=== PATIENT | female | born 1990 ===

== ENCOUNTER 2020-10-25 12:18 | Outpatient (REF) | payer OTHER, SELFPAY ==
[2020-10-25 13:16] LABS: MANUAL DIFF FLAG NO
[2020-10-25 13:48] LABS: Basophils Percent Auto 0.5 % (0-2); Eosinophils Absolute Auto 0.1 X10*3/uL (0.0-0.4); Eosinophils Percent Auto 0.7 % (0-4); Hematocrit 43.4 % (37-47); Hemoglobin 14.3 g/dl (12.0-16.0); Imm Gran Abs Auto 0.01 X10*3/uL (0.00-0.03); Imm Gran Pct Auto 0.1 % (0.0-0.4); Mean Corpuscular HGB Conc 32.9 g/dl (31.0-35.0); Mean Corpuscular Hemoglobin 26.9 pg (27.0-33.0); Mean Corpuscular Volume 81.6 fL (80-98); Mean Platelet Volume 10.9 fL (9.4-12.3); Monocytes Absolute Auto 0.6 X10*3/uL (0.1-1.2); Monocytes Percent Auto 7.7 % (2-11); Neutrophils Absolute Auto 4.8 X10*3/uL (2.0-8.3); Platelet Count 316 X10*3/uL (160-400); Red Blood Count 5.32 X10*6/uL (4.20-5.50); Red Cell Distribution Width 12.7 % (11.0-16.0); White Blood Count 7.4 X10*3/uL (4.8-10.8)
[2020-10-25 14:41] LABS: Erythrocyte Sedimentation Rate 2 MM/HR (0-20)
[2020-10-25 14:49] LABS: Alanine Aminotransferase 8 U/L (0-31); Albumin Level 4.9 g/dL (3.5-5.0); Alkaline Phosphatase 54 U/L (39-117); Anion Gap 14 (12-20); Aspartate Amino Transferase 14 U/L (5-31); Bilirubin Total 1.9 mg/dL (0.0-1.0); Blood Urea Nitrogen 13 mg/dL (9-16); Calcium 9.7 mg/dL (8.4-10.2); Carbon Dioxide 27 mmol/L (22-29); Chloride 100 mmol/L (96-108); Cholesterol 197 mg/dL; Estimated Glomerular Filt Rate > 60; Glucose Fasting 116 mg/dL (60-99); HDL Cholesterol 47 mg/dL; LDL Cholesterol Calculated 136 mg/dl; Potassium 3.6 mmol/L (3.3-5.1); Rheumatoid Factor < 15.0 IU/mL (<15.0); Sodium 137 mmol/L (135-145); Total Protein 7.8 g/dL (6.5-8.0); Triglycerides 72 mg/dL
[2020-10-25 14:51] LABS: TSH reflex Free T4 0.83 uIU/mL (0.32-4.0)
[2020-10-29 14:38] LABS: Cyclic Citrullinated Peptide <16 UNITS
== END 2020-10-25 12:19 | disposition home or self-care (01) ==
LOC: HO.LAB 12:18
PROVIDERS: PCP Internal Medicine; Visit Provider Internal Medicine
DX: M25.50 Pain in unspecified joint (principal); R63.4 Abnormal weight loss; Z82.49 Family history of ischemic heart disease and other diseases of the circulatory system
CPT/HCPCS: 36415; 80053; 80061; 84443; 85025; 85652; 86200; 86431

== ENCOUNTER 2020-10-31 12:20 | Outpatient (REF) | payer OTHER, SELFPAY ==
--- NOTE | ~2020-10-31 | XR_ITS ---
EXAMINATION: XR LUMBOSACRAL SPINE CLINICAL INFORMATION: Low back pain. COMPARISON: None TECHNIQUE: Three views of the lumbosacral spine. FINDINGS: There is normal lumbar lordosis. The vertebral heights, alignment and disc heights are normal. There is no visible acute fracture, dislocation or subluxation. No lytic or sclerotic process seen. The soft tissues are normal. The SI joints are symmetrical and normal. XR/XR lumbar spine 2-3V IMPRESSION: Unremarkable lumbar spine exam.
[2020-11-01 04:52] LABS: Lyme Abs Screen <0.90 index
[2020-11-01 12:27] LABS: Antibody to SS-A Antigen <1.0 NEG AI (<1.0 NEG); Antibody to SS-B Antigen <1.0 NEG AI (<1.0 NEG)
[2020-11-01 15:36] LABS: Anti Nuclear Antibody Screen NEGATIVE (NEGATIVE)
[2020-11-05 15:37] LABS: Vitamin D 25-OH, D2 <4 ng/mL; Vitamin D 25-OH, D3 9 ng/mL; Vitamin D 25-OH, Total 9 ng/mL (30-100)
== END 2020-10-31 12:21 | disposition home or self-care (01) ==
LOC: HO.LAB 12:20
PROVIDERS: PCP Internal Medicine; Referring Provider Internal Medicine; Visit Provider Student in an Organized Health Care Education/Training Program
DX: M25.50 Pain in unspecified joint (principal)
CPT/HCPCS: 36415; 72100; 82306; 86038; 86039; 86235; 86618; 99202

== ENCOUNTER → 2020-11-27 10:25 | Outpatient (BNVA) | payer OTHER, SELFPAY | PROVIDERS: PCP Internal Medicine; Visit Provider Student in an Organized Health Care Education/Training Program | DX: M25.50 Pain in unspecified joint (principal); E55.9 Vitamin D deficiency, unspecified; Z68.1 Body mass index [BMI] 19.9 or less, adult; Z71.3 Dietary counseling and surveillance | CPT/HCPCS: 99212 ==

== ENCOUNTER 2020-11-29 14:49 | Outpatient (REF) | payer OTHER, SELFPAY ==
[2020-11-30 09:02] LABS: BV Int Neg Control Negative (Negative); BV Int Pos Control Positive (Positive)
== END 2020-11-29 14:50 | disposition home or self-care (01) ==
LOC: HO.LAB 14:49
PROVIDERS: PCP Internal Medicine; Visit Provider Advanced Practice Midwife
DX: Z01.419 Encounter for gynecological examination (general) (routine) without abnormal findings (principal); Z11.3 Encounter for screening for infections with a predominantly sexual mode of transmission; Z20.2 Contact with and (suspected) exposure to infections with a predominantly sexual mode of transmission; N92.0 Excessive and frequent menstruation with regular cycle; G43.109 Migraine with aura, not intractable, without status migrainosus; Z80.3 Family history of malignant neoplasm of breast
CPT/HCPCS: 87480; 87491; 87510; 87591; 87660

== ENCOUNTER 2021-05-16 14:46 | Outpatient (REF) | payer OTHER, SELFPAY ==
[2021-05-17 04:24] LABS: CT PCR NOT DETECTED (Not Detect.); NG PCR NOT DETECTED (Not Detect.)
[2021-05-17 08:39] LABS: BV Int Neg Control Negative (Negative); BV Int Pos Control Positive (Positive)
== END 2021-05-16 14:47 | disposition home or self-care (01) ==
LOC: HO.LAB 14:46
PROVIDERS: Advanced Practice Midwife; Visit Provider Advanced Practice Midwife
DX: N90.89 Other specified noninflammatory disorders of vulva and perineum (principal)
CPT/HCPCS: 81003; 81025; 87480; 87491; 87510; 87591; 87660

== ENCOUNTER 2021-08-21 19:24 | Emergency (ER) | payer OTHER, SELFPAY ==
--- NOTE | ~2021-08-21 | CT_ITS ---
EXAMINATION: CT ABDOMEN AND PELVIS WITHOUT CONTRAST CLINICAL INFORMATION: Left flank pain. COMPARISON: None TECHNIQUE: Multidetector volumetric imaging was performed from the superior aspect of the liver through the pubic symphysis. Sagittal and coronal reformatted images were obtained on the technologist's workstation. This CT examination was performed using dose optimization techniques as appropriate, variously including the following: *Automated exposure control *Adjustment of mA and/or kV according to patient size (this includes techniques or standardized protocols for targeted exams where dose is matched to indication/reason for exam; i.e. extremities or head) *Use of iterative reconstruction technique DLP: 314 mGy-cm FINDINGS: LUNG BASES: The visualized lung bases are unremarkable. LIVER, GALLBLADDER, AND BILIARY TREE: The liver is normal in size, shape, and attenuation. No focal hepatic lesion or biliary ductal dilatation is present. The gallbladder is unremarkable with no evidence of radiopaque gallstones, gallbladder wall thickening, or obvious pericholecystic inflammatory changes. PANCREAS: Unremarkable. SPLEEN: Unremarkable. ADRENAL GLANDS: Unremarkable. KIDNEYS AND URETERS: The kidneys are normal in size, shape, and attenuation. No hydronephrosis, hydroureter, or calculi seen. No perinephric stranding. BLADDER: Unremarkable. GASTROINTESTINAL TRACT: The small and large bowel are unremarkable. The appendix is nonvisualized. No edema or inflammation of the mesentery. ABDOMINAL WALL: No significant hernia is appreciated. LYMPH NODES: Normal. VASCULAR: Unremarkable. PELVIC VISCERA: Unremarkable. OSSEOUS STRUCTURES: Unremarkable. CT/CT abdomen pelvis wo con IMPRESSION: Normal CT scan of the abdomen pelvis. Normal kidneys , ureter and bladder. Fleischner guidelines were followed.
[2021-08-21 20:27] VITALS: BP 124/69; PULSE 96; RESP 16; TEMP 36.8; O2SAT 100; BMI 20.5
[2021-08-21 21:07] LABS: MANUAL DIFF FLAG NO
[2021-08-21 21:08] LABS: Appearance Urine HAZY; Basophils Absolute Auto 0.1 X10*3/uL (0.0-0.2); Basophils Percent Auto 0.6 % (0-2); Color Urine YELLOW; Eosinophils Absolute Auto 0.2 X10*3/uL (0.0-0.4); Eosinophils Percent Auto 1.9 % (0-4); Glucose Urine UA NEG (NEG); Hematocrit 39.2 % (37.0-47.0); Hemoglobin 12.9 g/dl (12.0-16.0); Imm Gran Abs Auto 0.01 X10*3/uL (0.00-0.03); Imm Gran Pct Auto 0.1 % (0.0-0.4); Leukocyte Esterase Urine 1+ (NEG); Lymphocytes Percent Auto 23.7 % (20-40); Mean Corpuscular HGB Conc 32.9 g/dl (31.0-35.0); Mean Corpuscular Hemoglobin 27.4 pg (27.0-33.0); Mean Corpuscular Volume 83.4 fL (80.0-98.0); Monocytes Absolute Auto 0.7 X10*3/uL (0.1-1.2); Monocytes Percent Auto 8.4 % (2-11); Neutrophils Absolute Auto 5.4 x10*3/uL (2.0-8.3); Neutrophils Percent Auto 65.3 % (45-73); Nitrite Urine NEG (NEG); PH 6.5 (5.0-8.0); Platelet Count 311 X10*3/uL (160-400); UACC Culture Trigger YES; Urine Blood 1+ (NEG); Urine Ketones NEG (NEG); Urine Protein NEG (NEG-TRACE); White Blood Count 8.2 X10*3/uL (4.8-10.8)
[2021-08-21 21:13] LABS: UPreg QC Valid YES; Urine Pregnancy NEGATIVE (NEGATIVE)
[2021-08-21 21:18] LABS: Mucus Urine 2+ /LPF; Renal Epithelial Cells Urine 1+ /LPF; Squamous Epithelial Cell Urine TRACE /LPF
[2021-08-21 21:19] LABS: Bacteria Urine TRACE /LPF; UACC CULT YES
[2021-08-21 21:37] LABS: Alanine Aminotransferase 9 U/L (0-31); Albumin Level 4.4 g/dL (3.5-5.0); Alkaline Phosphatase 69 U/L (39-117); Anion Gap 10 (12-20); Aspartate Amino Transferase 14 U/L (5-31); Bilirubin Total 0.6 mg/dL (0.0-1.0); Blood Urea Nitrogen 11 mg/dL (9-16); Calcium 9.9 mg/dL (8.4-10.2); Carbon Dioxide 29 mmol/L (22-29); Chloride 105 mmol/L (96-108); Creatinine Clr Calc Pharmacy 85.8; Estimated Glomerular Filt Rate > 60; Glucose Random 102 mg/dL (60-115); Potassium 3.6 mmol/L (3.3-5.1); Sodium 140 mmol/L (135-145); Total Protein 7.1 g/dL (6.5-8.0)
--- NOTE | 2021-08-21 21:55 | ED.ABDPAIN ---
HPI - Abdominal Pain General Chief Complaint: Abdominal Pain Stated Complaint: ?uti Time Seen by Provider: 08/21/21 21:54 Source: patient Mode of arrival: ambulatory Limitations: no limitations History of Present Illness MD elicited complaint: abdominal pain Pertinent past history: past UTI Onset (ago): day(s) (5) Location: L flank Severity: moderate Quality: aching Radiation: none Migration to: no migration Exacerbating factors: nothing Relieving factors: nothing Context: history of similar episodes Associated symptoms: chills and other (headaches, dysuria) Treatments prior to arrival: other (took motrin earlier today no relief) Related Data Home Medications Medication Instructions Recorded Confirmed ibuprofen 100 mg/5 mL oral 200 mg PO Q6H 10/31/20 07/16/21 suspension (Children's Ibuprofen) lidocaine 4 % topical patch 1 patch TOPICAL DAILY PRN 10/31/20 07/16/21 (Aspercreme (lidocaine)) menthol 2.5 % topical gel (Icy Hot 1 appl TOPICAL BID-QID PRN 10/31/20 07/16/21 Pain Relieving) Previous Rx's Medication Instructions Recorded cholecalciferol (vitamin D3) 1,250 1,250 mcg PO QWEEK #8 cap 11/06/20 mcg (50,000 unit) capsule cholecalciferol (vitamin D3) 50 50 mcg PO DAILY 90 Days #90 cap 07/16/21 mcg (2,000 unit) capsule cefuroxime axetil 500 mg tablet 500 mg PO BID 10 Days #20 tab 08/21/21 ondansetron 4 mg disintegrating 4 mg PO Q8H PRN #20 tab 08/21/21 tablet Allergies Allergy/AdvReac Type Severity Reaction Status Date / Time No Known Allergies [NKA] Allergy Verified 07/16/21 10:24 Review of Systems Review of Systems Constitutional : No Fever, No Chills ENT/Mouth : No sore throat Eyes: No Eye Pain, No Swelling, No Redness Cardiovascular : No Chest Pain, No SOB Respiratory : No Cough, No Sputum, No Wheezing Gastrointestinal : positive Nausea, no Vomiting, No Diarrhea, positive abdominal pain Genitourinary : positive Dysuria, positive urinary frequency, no Hematuria, positive Flank Pain, no hesitancy Musculoskeletal : No joint pain, No Myalgias Skin : No Skin Lesions, No rash Neuro : No Weakness, No Numbness, pos Headache Psych : No Anxiety/Panic, No Depression Heme/Lymph: No Bruising, No Lymphadenopathy Endocrine : No Polyuria, No Polydipsia All other systems reviewed and are negative Physical Exam Vital Signs: Vital Signs: Last Vital Signs Temp 98.3 F 08/21/21 20:27 Pulse 96 08/21/21 20:27 Resp 16 08/21/21 20:27 BP 124/69 08/21/21 20:27 Pulse Ox 100 08/21/21 20:27 BMI result Body Mass Index 20.5 Appearance: Alert. Oriented X3. No acute distress. Eyes: Pupils equal, round and reactive to light. ENT: Pharynx normal. Neck: Normal inspection. Neck supple. CVS: Normal heart rate and rhythm. Pulses normal. Respiratory: No respiratory distress. Breath sounds normal. Abdomen: Soft and nontender. Back: mild L CVA ttp Skin: Skin warm and dry. Normal skin color. Normal skin turgor. Extremities: No lower extremity edema. No calf ttp Neuro: Oriented X 3. No motor deficit. No sensory deficit. Course Course Course Narrative: negative CT scan no WBC count not toxic, no vomiting can be managed at home with PO antibiotics MDM - Abdominal Pain MDM Narrative Medical decision making narrative: 30 yo female with L flank pain hx of pyelo in the past reports symptoms x 5 days - she denies fevers, vomiting - at this time labs, UA, supportive medications, empiric ceftriaxone and CT scan for renal colic - she is not toxic likely can be managed at home with PO medications. Dispo per results and findings. Lab Data Result diagrams: 08/21/21 21:00 08/21/21 21:00 Labs: Lab Results 08/21/21 08/21/21 08/21/21 Range/Units 21:00 21:00 21:00 WBC 8.2 (4.8-10.8) X10*3/uL RBC 4.70 (4.20-5.50) X10*6/uL Hgb 12.9 (12.0-16.0) g/dl Hct 39.2 (37.0-47.0) % MCV 83.4 (80.0-98.0) fL MCH 27.4 (27.0-33.0) pg MCHC 32.9 (31.0-35.0) g/dl RDW 13.0 (11.0-16.0) % Plt Count 311 (160-400) X10*3/uL MPV 10.0 (9.4-12.3) fL Immature Gran % (Auto) 0.1 (0.0-0.4) % Neut % (Auto) 65.3 (45-73) % Lymph % (Auto) 23.7 (20-40) % Kendall % (Auto) 8.4 (2-11) % Eos % (Auto) 1.9 (0-4) % Baso % (Auto) 0.6 (0-2) % Lymph # (Auto) 2.0 (1.2-4.9) X10*3/uL Kendall # (Auto) 0.7 (0.1-1.2) X10*3/uL Eos # (Auto) 0.2 (0.0-0.4) X10*3/uL Baso # (Auto) 0.1 (0.0-0.2) X10*3/uL Abs Immat Gran (auto) 0.01 (0.00-0.03) X10*3/uL Absolute Neuts (auto) 5.4 (2.0-8.3) x10*3/uL Absolute Nucleated RBC 0.000 (0.0-0.012) X10*3/uL Nucleated RBC % (auto) 0.0 (0.0-0.2) /100WBC Sodium 140 (135-145) mmol/L Potassium 3.6 (3.3-5.1) mmol/L Chloride 105 (96-108) mmol/L Carbon Dioxide 29 (22-29) mmol/L Anion Gap 10 L (12-20) BUN 11 (9-16) mg/dL Creatinine 0.71 (0.5-1.4) mg/dL Estim Creat Clear Calc 85.8 Estimated GFR > 60 Random Glucose 102 (60-115) mg/dL Calcium 9.9 (8.4-10.2) mg/dL Total Bilirubin 0.6 (0.0-1.0) mg/dL AST 14 (5-31) U/L ALT 9 (0-31) U/L Alkaline Phosphatase 69 D (39-117) U/L Total Protein 7.1 (6.5-8.0) g/dL Albumin 4.4 (3.5-5.0) g/dL Urine Color YELLOW Urine Appearance HAZY Urine pH 6.5 (5.0-8.0) Ur Specific Fulton 1.020 (1.005-1.025) Urine Protein NEG (NEG-TRACE) MG/DL Urine Glucose (UA) NEG (NEG) MG/DL Urine Ketones NEG (NEG) MG/DL Urine Blood 1+ H (NEG) Urine Nitrite NEG (NEG) Ur Leukocyte Esterase 1+ H (NEG) Urine RBC 1-4 (0) /HPF Urine WBC 15-29 H (0-4) /HPF Ur Squamous Epith Cells TRACE /LPF Ur Renal Epithelial Cell 1+ /LPF Urine Bacteria TRACE /LPF Urine Mucus 2+ /LPF Urine Test (NEGATIVE) 08/21/21 Range/Units 21:00 WBC (4.8-10.8) X10*3/uL RBC (4.20-5.50) X10*6/uL Hgb (12.0-16.0) g/dl Hct (37.0-47.0) % MCV (80.0-98.0) fL MCH (27.0-33.0) pg MCHC (31.0-35.0) g/dl RDW (11.0-16.0) % Plt Count (160-400) X10*3/uL MPV (9.4-12.3) fL Immature Gran % (Auto) (0.0-0.4) % Neut % (Auto) (45-73) % Lymph % (Auto) (20-40) % Kendall % (Auto) (2-11) % Eos % (Auto) (0-4) % Baso % (Auto) (0-2) % Lymph # (Auto) (1.2-4.9) X10*3/uL Kendall # (Auto) (0.1-1.2) X10*3/uL Eos # (Auto) (0.0-0.4) X10*3/uL Baso # (Auto) (0.0-0.2) X10*3/uL Abs Immat Gran (auto) (0.00-0.03) X10*3/uL Absolute Neuts (auto) (2.0-8.3) x10*3/uL Absolute Nucleated RBC (0.0-0.012) X10*3/uL Nucleated RBC % (auto) (0.0-0.2) /100WBC Sodium (135-145) mmol/L Potassium (3.3-5.1) mmol/L Chloride (96-108) mmol/L Carbon Dioxide (22-29) mmol/L Anion Gap (12-20) BUN (9-16) mg/dL Creatinine (0.5-1.4) mg/dL Estim Creat Clear Calc Estimated GFR Random Glucose (60-115) mg/dL Calcium (8.4-10.2) mg/dL Total Bilirubin (0.0-1.0) mg/dL AST (5-31) U/L ALT (0-31) U/L Alkaline Phosphatase (39-117) U/L Total Protein (6.5-8.0) g/dL Albumin (3.5-5.0) g/dL Urine Color Urine Appearance Urine pH (5.0-8.0) Ur Specific Fulton (1.005-1.025) Urine Protein (NEG-TRACE) MG/DL Urine Glucose (UA) (NEG) MG/DL Urine Ketones (NEG) MG/DL Urine Blood (NEG) Urine Nitrite (NEG) Ur Leukocyte Esterase (NEG) Urine RBC (0) /HPF Urine WBC (0-4) /HPF Ur Squamous Epith Cells /LPF Ur Renal Epithelial Cell /LPF Urine Bacteria /LPF Urine Mucus /LPF Urine Test NEGATIVE (NEGATIVE) Discharge Plan Discharge Clinical Impression: Pyelonephritis Patient Disposition: Home, Self-Care Instructions: Kidney Infection (ED) Additional Instructions: return to ED for any worsening symptoms or concerns + UA labs otherwise normal, normal CT scan of abdomen Prescriptions: New ondansetron 4 mg tablet,disintegrating 4 mg PO Q8H PRN (Reason: nausea and vomiting) Qty: 20 RF: 0 cefuroxime axetil 500 mg tablet 500 mg PO BID 10 Days Qty: 20 RF: 0 No Action cholecalciferol (vitamin D3) 1,250 mcg (50,000 unit) capsule 1,250 mcg PO QWEEK Qty: 8 RF: 0 cholecalciferol (vitamin D3) 50 mcg (2,000 unit) capsule 50 mcg PO DAILY 90 Days Qty: 90 RF: 3 ibuprofen [Children's Ibuprofen] 100 mg/5 mL suspension 200 mg PO Q6H RF: 0 Icy Hot Pain Relieving 2.5 % gel 1 appl topical BID-QID PRNRF: 0 lidocaine [Aspercreme (lidocaine HCl)] 4 % adhesive patch,medicated 1 patch topical DAILY PRNRF: 0 Stand Alone Forms: Work/School Release [facility] Past Medical History Attestation statement: The following information was validated with the patient. Medical History FH: breast cancer in first degree relative Migraine with aura No pertinent past medical history UTI (urinary tract infection) Surgical History History of appendectomy Family History Family History Mother CVD (cardiovascular disease) Osteoporosis Father Lung cancer Sister Breast cancer, Onset Age: 21 Mental health disorder Social History Social History Housing: House Alcohol intake: current Alcohol intake frequency: does not drink Alcohol type: wine Patient Tobacco Use Status: Never used Tobacco e-Cigarette/Vaping Use: Never Used Second Hand Smoke Exposure: No Advance Directives: No Advance Directives Information Provided: Yes Patient : No service: No Current occupational status: employed 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
[2021-08-21] MEDS: cefTRIAXone sodium 1 GM in 0.9 % Sodium Chloride 50 ML IV (22:28)
[2021-08-21] MEDS: Ketorolac Tromethamine 15 MG/ML VIAL 30 MG IVPUSH (22:29)
[2021-08-21] MEDS: ondansetron HCL 4 MG/2 ML VIAL IVPUSH (22:30)
[2021-08-21] MEDS: 0.9 % Sodium Chloride 1,000 ML 999 ML IV (22:45)
== END 2021-08-22 00:38 | disposition home or self-care (01) ==
PROVIDERS: Emergency Medicine; Emergency Provider Emergency Medicine; PCP Internal Medicine
DX: N12 Tubulo-interstitial nephritis, not specified as acute or chronic (principal); R30.0 Dysuria; R10.9 Unspecified abdominal pain; R51.9 Headache, unspecified; Z79.899 Other long term (current) drug therapy
CPT/HCPCS: 36415; 74176; 80053; 81001; 81025; 85025; 87086; 87088; 87186; 96365; 96375; 99283; 99284; J0696; J1885; J2405

== ENCOUNTER 2021-09-09 21:06 | Outpatient (REF) | payer OTHER, SELFPAY ==
[2021-09-09 21:36] LABS: COVID-19 Test Negative (Negative); IDNOW Serial# 9DD0AD1C
== END 2021-09-09 21:07 | disposition home or self-care (01) ==
LOC: HO.LAB 21:06
PROVIDERS: PCP Internal Medicine; Visit Provider Internal Medicine
DX: Z20.822 Contact with and (suspected) exposure to COVID-19 (principal)
CPT/HCPCS: 36415; 87635

== ENCOUNTER 2022-02-16 14:22 | Outpatient (REF) | payer OTHER, SELFPAY ==
[2022-02-16 15:16] LABS: COVID-19 Test Positive (Negative); IDNOW Serial# 16C4AD1C
== END 2022-02-16 14:23 | disposition home or self-care (01) ==
LOC: HO.EMPCOV 14:22
PROVIDERS: PCP Internal Medicine; Visit Provider Internal Medicine
DX: Z20.822 Contact with and (suspected) exposure to COVID-19 (principal)
CPT/HCPCS: 87635

== ENCOUNTER 2023-08-17 20:54 | Emergency (ER) | payer OTHER, SELFPAY ==
[2023-08-17 21:01] VITALS: BP 119/79; PULSE 68; RESP 18; TEMP 36.6; O2SAT 98; BMI 23.6
[2023-08-17 21:07] VITALS: TEMP 36.6
--- NOTE | 2023-08-17 21:23 | ED.EXTPRO ---
HPI - Extremity Problem General Chief complaint: Extremity Injury, Upper Stated complaint: injured at work Time Seen by Provider: 08/17/23 21:21 Source: patient Mode of arrival: ambulatory Limitations: no limitations History of Present Illness HPI Narrative: Patient while at work pulled the patient and overextended her right thumb no other injuries patient able to move her right arm as such, no swelling no deformity Related Data Home Medications Medication Instructions Recorded Confirmed ibuprofen 100 mg/5 mL oral 200 mg PO Q6H 10/31/20 10/01/22 suspension (Children's Ibuprofen) lidocaine 4 % topical patch 1 patch topical DAILY PRN 10/31/20 10/01/22 (Aspercreme (lidocaine)) menthol 2.5 % topical gel (Icy Hot 1 appl topical BID-QID PRN 10/31/20 10/01/22 Pain Relieving) Previous Rx's Medication Instructions Recorded prednisone 10 mg tablet 10 mg PO DIRECTED 6 days #12 04/10/23 tabs ibuprofen 600 mg tablet 600 mg PO Q6H PRN fever or pain 08/17/23 #30 tabs Allergies Allergy/AdvReac Type Severity Reaction Status Date / Time No Known Allergies [NKA] Allergy Verified 08/17/23 21:04 Review of Systems Review of Systems: Yes all other systems are reviewed and are negative PMFSH Past Medical History Medical History UTI (urinary tract infection) FH: breast cancer in first degree relative Migraine with aura No pertinent past medical history Surgical History History of appendectomy Family History Family History Mother CVD (cardiovascular disease) Osteoporosis Father Lung cancer Sister Breast cancer, Onset Age: 21 Mental health disorder Social History Housing: House Alcohol intake: current Alcohol intake frequency: does not drink Alcohol type: wine Patient Tobacco Use Status: Never used Tobacco e-Cigarette/Vaping Use: Never Used Second Hand Smoke Exposure: No service: No Current occupational status: employed 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 Mild tenderness on extension of the right thumb neurovascular intact no swelling or deformity Medical Decision Making Medical Decision Making MDM Narrative: Clinically patient has right thumb extensor muscle strain with mild tenderness will discharge patient home on ibuprofen Discharge Plan Discharge Clinical Impression: Strain of intrinsic muscle of right thumb Patient Disposition: Home, Self-Care Instructions: Finger Sprain (ED) Additional Instructions: Apply ice rest to the right thumb Ibuprofen for pain Prescriptions: New ibuprofen 600 mg tablet 600 mg PO Q6H PRN (Reason: fever or pain) Qty: 30 0RF No Action prednisone 10 mg tablet 10 mg PO DIRECTED 6 Days Qty: 12 0RF Rx Instructions: Take 3 tabs for 2 days, then 2 tabs for 2 days, then 1 tab for 2 days ibuprofen [Children's Ibuprofen] 100 mg/5 mL suspension 200 mg PO Q6H Icy Hot Pain Relieving 2.5 % gel 1 appl topical BID-QID PRN lidocaine [Aspercreme (lidocaine)] 4 % adhesive patch,medicated 1 patch topical DAILY PRN Rx Instructions: may leave on for up to 12 hrs
--- OUTSIDE RECORDS SUMMARY | 2023-08-17 21:43 | XMS_ITS | Continuity of Care Document ---
Author Name Unknown Organization [facility] Address [address] [place] [id number]- Care Team Providers Care Test Facility Engineer Name Role Phone Jameel Smith MD, Jessie Primary Care Physician [phone] Encounter [facility] Date(s): 06/20/21 - 07/20/21 [facility] [address] [id number]- Allergies, Adverse Reactions, Alerts No Known Medication Allergies Medications Benadryl 25 mg oral capsule 1 capsule = 25 mg, By Mouth, 3 times a day, PRN for itching, # 15 capsule, 0 Refills, Maintenance, 03/17/15 2:34:09, Capsule Start Date: 03/17/15 Status: Ordered Benadryl 25 mg oral capsule 1 capsule = 25 mg, By Mouth, 3 times a day, PRN for itching, # 30 capsule, 0 Refills, Maintenance, 11/11/15 17:49:15, Capsule Start Date: 11/11/15 Status: Ordered hydrocortisone 0.5% topical cream 1 application, Topically, 4 times a day, # 30 Gm, 0 Refills, Maintenance, 11/11/15 17:49:09, Cream Start Date: 11/11/15 Status: Ordered meperidine 50 mg/5 ml oral syrup See Instructions, 120, mL, 0, 0, 08/09/07 14:27:53, 5 mL By Mouth Once for severe headache. Not to be used more than 2 times per week., Print TANA Number, ADS OPPTHS, [facility] [address] [place] [id number], Constant Indicator Start Date: 08/09/07 Status: Ordered prednisone 20 mg oral tablet 2 tablet = 40 mg, By Mouth, Daily, # 10 tablet, 0 Refills, Maintenance, 03/17/15 2:32:52 Start Date: 03/17/15 Stop Date: 03/22/15 Status: Ordered Problem List Condition Effective Dates Status Health Status Inform ant Migraine without aura(Confirmed)(Stable) Active
--- OUTSIDE RECORDS SUMMARY | 2023-08-17 21:43 | XMS_ITS | Continuity of Care Document ---
Author Name Unknown Organization [facility] Address [address] [place] [id number]- Care Team Providers Care Landman Name Role Phone Jameel Smith MD, Jessie Primary Care Physician [phone] [place] [facility] [place] [facility] [address] [address]- Attending Physician: Juanis Shultz Admitting Physician: AdmJuanis llamas Referring Physician: Admtr, Ar8 Allergies, Adverse Reactions, Alerts No Known Medication [...] per week., Print TANA Number, ADS OPPTHS, [facility] [address] [place] [id number], Constant Indicator Start Date: 08/09/07 Status: Ordered prednisone 20 mg oral tablet 2 tablet = 40 mg, By Mouth, Daily, # 10 tablet, 0 Refills, Maintenance, 03/17/15 2:32:52 Start Date: 03/17/15 Stop Date: 03/22/15 Status: Ordered Problem List Condition Effective Dates Status Health Status Inform ant Migraine without aura(Confirmed)(Stable) Active
[2023-08-17] MEDS: Ibuprofen 600 MG TABLET PO (21:49)
== END 2023-08-17 21:59 | disposition home or self-care (01) ==
PROVIDERS: Emergency Provider Internal Medicine; PCP Internal Medicine
DX: S66.211A Strain of extensor muscle, fascia and tendon of right thumb at wrist and hand level, initial encounter (principal); X50.9XXA Other and unspecified overexertion or strenuous movements or postures, initial encounter; Y93.F9 Activity, other caregiving; Y92.239 Unspecified place in hospital as the place of occurrence of the external cause; Y99.0 Civilian activity done for income or pay
CPT/HCPCS: 99283; 99284

== ENCOUNTER 2023-09-22 11:47 | Outpatient (AMB) | payer OTHER, SELFPAY ==
--- NOTE | 2023-09-22 14:53 | AM.OFFWIN_ITS ---
Intake Vital Signs 09/22/23 14:54 Height 5 ft 1 in BP 122/76 Blood Pressure Location Lt brachial Position Sitting Pulse 100 Pulse Source Pulse Oximeter Temp 98.2 F Temp Source Oral Pulse Oximetry (%) 96 Oxygen Delivery Method Room Air Intake Visit Reasons: EP RT eye burning itching [id number] Intake Note: Pt is here for RT eye burning and itching started 3 days ago, denies vision changes, just eye irritation Patient Tobacco Use Status: Never used Tobacco Allergies No Known Allergies [NKA] Allergy (Verified 09/22/23 14:53) Do you need a note to return to daycare/school/sports/work: No HPI EP RT eye burning itching [id number] HPI Details Sx present for the past few days. Tearing of the right eye is the predominant symptom. [facility] Medical History UTI (urinary tract infection) FH: breast cancer in first degree relative Migraine with aura No pertinent past medical history Surgical History History of appendectomy Family History Mother CVD (cardiovascular disease) Osteoporosis Father Lung cancer Sister Breast cancer, Onset Age: 21 Mental health disorder Social History Housing: House Alcohol intake: current Alcohol intake frequency: does not drink Alcohol type: wine Patient Tobacco Use Status: Never used Tobacco e-Cigarette/Vaping Use: Never Used Second Hand Smoke Exposure: No service: No Current occupational status: employed 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 This is consistent with Pterigium Assessment & Plan Assessment & Plan (1) Amyloid pterygium of right eye: Code(s): H11.011 - Amyloid pterygium of right eye Plan: Apply drops prescribed. Condition is due to allergies Medications: New olopatadine 0.2% (Pataday Once Daily Relief) 1 drp ophthalmic (eye) DAILY PRN 2.5 mL 0RF itching Coding Level of Care Code Est Pt Level 3 (20565) Diagnoses Amyloid pterygium of right eye H11.011
[2023-09-22 14:54] VITALS: BP 122/76; PULSE 100; TEMP 36.8; O2SAT 96
== END 2023-09-22 15:27 | disposition home or self-care (01) ==
PROVIDERS: PCP Internal Medicine; Visit Provider Internal Medicine
DX: H11.011 Amyloid pterygium of right eye (principal)
CPT/HCPCS: 99213

== ENCOUNTER 2024-06-29 16:22 | Outpatient (AMB) | payer OTHER, SELFPAY ==
--- NOTE | 2024-06-29 16:23 | A.OFFPC_ITS ---
Vital Signs 06/29/24 16:24 Height 5 ft 1 in Weight 127 lb BMI 24.0 BP 112/76 Blood Pressure Location Lt brachial Position Sitting Intake Visit Reasons: chest pain Intake Note: Patient here c/o chest pains, spot on chest ? bite Employee Wellness/Fitness Coordinator Required: No Accompanied by: Self / Same As Patient Allergies No Known Allergies [NKA] Allergy (Verified 06/29/24 16:53) Medication List - Last Reconciled 06/29/24 by Payal Smith MD ibuprofen 600 mg PO Q6H PRN lidocaine 4% (Aspercreme (lidocaine)) 1 patch topical DAILY PRN menthol 2.5% (Icy Hot Pain Relieving) 1 appl topical BID-QID PRN Tobacco use date assessed: 06/29/24 Dental Screening Dental Screen Date: 06/29/24 Did you have a dental visit in the last 12 months?: Yes Did you have a dental problem in the last 6 months where you did not have access to dental care?: No Was dental information given to patient?: Patient has dentist HPI HPI Comments History of Present Illness Details This is a 33-year-old female that comes today complaining of a chest pain located in the upper part of the chest bilateral and radiates to both arms with bilateral arm weakness. She had a cold few weeks ago and then after that still has the chest pain. It happens at rest. No shortness on breath associated with the chest pain. No fever. She also has diffuse joint pain and mother has rheumatoid arthritis. [facility] Medical History (Updated 06/29/24 @ 17:03 by Payal Smith MD) UTI (urinary tract infection) FH: breast cancer in first degree relative Migraine with aura No pertinent past medical history Surgical History History of appendectomy Family History Mother CVD (cardiovascular disease) Osteoporosis Father Lung cancer Sister Breast cancer, Onset Age: 21 Mental health disorder Social History (Updated 06/29/24 @ 16:57 by Payal Smith MD) Housing: House Alcohol intake: current Alcohol intake frequency: holidays/special occasions only Alcohol type: wine Patient Tobacco Use Status: Never used Tobacco e-Cigarette/Vaping Use: Never Used Second Hand Smoke Exposure: No service: No Current occupational status: employed 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 1. Little interest or pleasure in doing things: not at all 2. Feeling down, depressed, or hopeless: not at all 3. Trouble falling or staying asleep, or sleeping too much: not at all 4. Feeling tired or having little energy: not at all 5. Poor appetite or overeating: not at all 6. Feeling bad about yourself - or that you are a failure or have let yourself or your family down: not at all 7. Trouble concentrating on things, such as reading the newspaper or watching television: not at all 8. Moving or speaking so slowly that other people could have noticed. Or the opposite - being so fidgety or restless that you have been moving around a lot more than usual: not at all 9. Thoughts that you would be better off or of hurting yourself in some way: not at all Total score: 0 Depression Screening Interpretation: Negative Depression Screening Done: Yes 44858 - PHQ-9 Billing: Yes Source: Developed by Drs. Shawn Romero, Elba Laboy, Mahamed Magallon and colleagues, with an educational ramez from [employer]. Thrive Questionnaire Date Thrive assessed: 06/29/24 I am a: Patient What is your living situation today?: I have a steady place to live Within the past 12 months, did the food you bought not last and you didn't have the money to get more?: Never true Within the past 12 months, did you worry whether your food would run out before you got money to buy more?: Never true Do you have trouble paying for medicines?: No Do you have trouble getting transportation to medical appointments?: No Do you have trouble paying your heating and electricity bill?: No Do you have trouble taking care of your child, family member or friend?: No Do you have trouble with day-to-day activities such as bathing, preparing meals, shopping, managing finances, etc.?: No Are you currently unemployed and looking for a job?: No Are you interested in more education?: No Please select the resources that you would like help with: None Currently or been in a relationship where the following occur: No concerns reported THRIVE Score: 0 AUDIT C Alcohol Use Questionnaire (AUDIT-C) 1. How often do you have a drink containing alcohol?: Never Total Score: 0 Score Reviewed/Action Taken: No JO-7 AMB Questionnaire JO-7 Date JO - 7 assessed: 06/29/24 Feeling nervous, anxious, or on edge: 1 = Several days Not being able to stop or control worryin = Not at all Worrying too much about different things: 1 = Several days Trouble relaxin = Not at all Being so restless that it is hard to sit still: 0 = Not at all Becoming easily annoyed or irritable: 0 = Not at all Feeling afraid as if something awful might happen: 0 = Not at all Total JO-7 score (0-4 normal; 5-9 mild; 10-14 moderate; 15-21 severe): 2 Source: Developed by Drs. Shawn Romero, Elba Laboy, Mahamed Magallon and colleagues, with an educational ramez from [employer]. JO-7 Assessment Billing JO-7 Assessment Tool: JO-7 Assessment 33518 Review of Systems Const All systems reviewed & are unremarkable except as noted in HPI and below Card Denies chest pain at rest, Denies chest pain with activity, Denies edema, Denies irregular heart rhythm, Denies claudication, Denies dyspnea, Denies dyspnea on exertion, Denies orthopnea, Denies paroxysmal nocturnal dyspnea and Denies slow heart rate Resp Denies cough, Denies dyspnea and Denies dyspnea on exertion GI Denies abdominal pain, Denies change in bowel habits, Denies excessive flatus, Denies nausea and Denies vomiting Denies urinary incontinence, Denies urinary hesitancy and Denies urinary urgency Musc Denies atrophy, Denies deformity and Denies limited range of motion Physical exam (Primary Care) Vital Signs: Last Vital Signs BP 112/76 06/29/24 16:24 BMI result Body Mass Index 24.0 Tobacco/Smoking Status: Tobacco use Status Tobacco use date assessed 06/29/24 06/29/24 16:30 Patient Tobacco Use Status Never used Tobacco 06/29/24 16:57 e-Cigarette/Vaping Use Never Used 06/29/24 16:57 PHQ-9: PHQ-9 Score PHQ-9: Total score 0 06/29/24 16:58 Depression Screening Interpretation: Negative Thrive Assessment: Date of Thrive Assessment Date Thrive assessed 06/29/24 06/29/24 16:30 Currently or been in a relationship where the following occur: No concerns reported Resp Effort & Inspection: normal respiratory effort Auscultation: clear to auscultation bilaterally Cardio Jugular venous distension: no JVD Rate: regular rate Rhythm: regular rhythm Heart sounds: S1 normal heart sound present and S2 normal heart sound present Extrem General: Yes full ROM Office Procedures Flu Questionnaire Does the patient have a severe egg allergy?: No Immunizations Fluarix Triv [id number] (PF) 45 mcg (15 mcg x 3)/0.5 mL IM syringe Performing Provider: Payal Smith MD [facility] [place] Documented (not given) by: BONI Millard on 06/29/24 16:30 Reason Not Given: Patient Refused Coding Level of Care Code Est Pt Level 3 (98716) Complex EM visit Add On G2211 Diagnoses Chest pain R07.9 Polyarthralgia M25.50 Additional Codes JO-7 Assessment Billing - JO-7 Assessment Tool: JO-7 Assessment 85536 ([id number]) Time Spent (min) 19 Assessment & Plan Assessment & Plan (1) Chest pain: Code(s): R07.9 - Chest pain, unspecified Category: Medical Plan: EKG and chest x-ray ordered. (2) Polyarthralgia: Code(s): M25.50 - Pain in unspecified joint Category: Medical Plan: Labs ordered. Orders: Orders Influenza [id number] Immunization Today Z23 - Encounter for immunization XR chest 2V Today R07.9 - Chest pain, unspecified Thyroid Stimulating Hormone Today R07.9 - Chest pain, unspecified Vitamin B12 and Folate Today E53.8 - Deficiency of other specified B group vitamins Vitamin D 25-OH Total Today E55.9 - Vitamin D deficiency, unspecified Erythrocyte Sedimentation Rate Today M25.50 - Pain in unspecified joint PAYAL Reflex Titer and Pattern Today M25.50 - Pain in unspecified joint ECG 12 lead EKG Today R07.9 - Chest pain, unspecified CA echo transthoracic complete Today R01.1 - Cardiac murmur, unspecified Lipid Panel Today R07.9 - Chest pain, unspecified Comprehensive Met. Panel Today R07.9 - Chest pain, unspecified Complete Blood Count Auto Diff Today R07.9 - Chest pain, unspecified Cyclic Citrullinated Peptide Today M25.50 - Pain in unspecified joint Rheumatoid Factor Today M25.50 - Pain in unspecified joint
[2024-06-29 16:24] VITALS: BP 112/76; BMI 24.0
== END 2024-06-29 17:04 | disposition home or self-care (01) ==
PROVIDERS: PCP Internal Medicine; Visit Provider Internal Medicine
DX: R07.9 Chest pain, unspecified (principal); M25.50 Pain in unspecified joint; Z23 Encounter for immunization

== ENCOUNTER → 2024-06-29 16:22 | Outpatient (BNVA) | payer OTHER, SELFPAY | PROVIDERS: PCP Internal Medicine; Visit Provider Internal Medicine | DX: R07.9 Chest pain, unspecified (principal); M25.50 Pain in unspecified joint; Z28.21 Immunization not carried out because of patient refusal | CPT/HCPCS: 90471; 96127 ==

== ENCOUNTER 2024-07-01 11:45 | Outpatient (REF) | payer OTHER, SELFPAY ==
--- NOTE | 2024-07-01 11:49 | ECG_ITS ---
Test Reason : CHEST PAIN Blood Pressure : / mmHG Vent. Rate : 081 BPM Atrial Rate : 081 BPM P-R Int : 122 ms QRS Dur : 074 ms QT Int : 366 ms P-R-T Axes : 057 015 033 degrees QTc Int : 425 ms Normal sinus rhythm Normal ECG When compared with ECG of 19-DEC-2013 10:53, No significant change was found Referred By: Payal Smith Electronically Signed By:KARYNA SNYDER MD
[2024-07-01 12:12] LABS: MANUAL DIFF FLAG NO
[2024-07-01 13:35] LABS: Basophils Absolute Auto 0.1 X10*3/uL (0.0-0.2); Basophils Percent Auto 0.9 % (0-2); Eosinophils Absolute Auto 0.2 X10*3/uL (0.0-0.4); Eosinophils Percent Auto 2.9 % (0-4); Hematocrit 41.9 % (37.0-47.0); Hemoglobin 13.5 g/dl (12.0-16.0); Imm Gran Abs Auto 0.01 X10*3/uL (0.00-0.03); Imm Gran Pct Auto 0.2 % (0.0-0.4); Lymphocytes Absolute Auto 1.8 X10*3/uL (1.2-4.9); Lymphocytes Percent Auto 30.4 % (20-40); Mean Corpuscular HGB Conc 32.2 g/dl (31.0-35.0); Mean Corpuscular Hemoglobin 26.8 pg (27.0-33.0); Mean Corpuscular Volume 83.3 fL (80.0-98.0); Mean Platelet Volume 10.5 fL (9.4-12.3); Monocytes Absolute Auto 0.5 X10*3/uL (0.1-1.2); Monocytes Percent Auto 8.5 % (2-11); Neutrophils Absolute Auto 3.3 x10*3/uL (2.0-8.3); Neutrophils Percent Auto 57.1 % (45-73); Platelet Count 370 X10*3/uL (160-400); Red Blood Count 5.03 X10*6/uL (4.20-5.50); White Blood Count 5.9 X10*3/uL (4.8-10.8)
[2024-07-01 14:10] LABS: Alanine Aminotransferase 9 U/L (0-31); Albumin Level 4.4 g/dL (3.5-5.0); Alkaline Phosphatase 68 U/L (39-117); Anion Gap 9 (12-20); Aspartate Amino Transferase 14 U/L (5-31); Bilirubin Total 0.9 mg/dL (0.0-1.0); Blood Urea Nitrogen 8 mg/dL (9-16); Calcium 9.5 mg/dL (8.4-10.2); Carbon Dioxide 28 mmol/L (22-29); Chloride 105 mmol/L (96-108); Cholesterol 198 mg/dL (<200); Estimated Glomerular Filt Rate > 60; Glucose Random 98 mg/dL (60-115); HDL Cholesterol 47 mg/dL (>40); LDL Cholesterol Calculated 133 mg/dL (<100); Potassium 3.9 mmol/L (3.3-5.1); Sodium 138 mmol/L (135-145); Total Protein 7.4 g/dL (6.5-8.0); Triglycerides 94 mg/dL (<150)
[2024-07-01 14:15] LABS: Erythrocyte Sedimentation Rate 10 MM/HR (0-20)
[2024-07-01 14:19] LABS: Rheumatoid Factor < 13.0 IU/mL (<15.0)
[2024-07-01 14:31] LABS: Vitamin D 25-OH Total 29.4 ng/mL (>30)
[2024-07-01 14:46] LABS: Vitamin B12 280 pg/mL (200-900)
[2024-07-01 14:47] LABS: Thyroid Stimulating Hormone 0.78 uIU/mL (0.32-4.0)
[2024-07-04 14:09] LABS: Anti Nuclear Antibody Screen NEGATIVE (NEGATIVE)
[2024-07-05 01:58] LABS: Lyme Abs Screen <0.90 index
[2024-07-07 13:48] LABS: Cyclic Citrullinated Peptide <16 UNITS
== END 2024-07-01 11:46 | disposition home or self-care (01) ==
LOC: HO.LAB 11:45
PROVIDERS: PCP Internal Medicine; Visit Provider Internal Medicine
DX: R07.9 Chest pain, unspecified (principal); M25.50 Pain in unspecified joint; R53.83 Other fatigue; E53.8 Deficiency of other specified B group vitamins; E55.9 Vitamin D deficiency, unspecified
CPT/HCPCS: 36415; 71046; 80053; 80061; 82306; 82607; 82746; 84443; 85025; 85652; 86038; 86200; 86431; 86617; 86618; 93005

== ENCOUNTER → 2024-07-01 11:49 | Outpatient (BNV) | payer OTHER, SELFPAY | PROVIDERS: PCP Internal Medicine; Visit Provider Internal Medicine Cardiovascular Disease | DX: R07.9 Chest pain, unspecified (principal) | CPT/HCPCS: 93010 ==

== ENCOUNTER → 2024-07-29 10:56 | Outpatient (REF) | payer OTHER, SELFPAY ==
--- NOTE | 2024-07-29 10:59 | CA_ITS ---
Transthoracic Echocardiogram Patient (Last, First, Middle): Alejandra Zaldivar E Gender: Female Date of : 1990 Age: 33 Procedure Date: 07/29/2024 Procedure Type: Transthoracic Echocardiogram Location: OP Height: 154.94 cm Weight: 57.61 kg BSA: 1.56 m2 Heart Rate: 72 bpm BP: 112 / 64 mmHg Tower Helper: SB Referring MD: Payal Smith MD Radiologic Technician: Carroll Arellano MD Symptoms: R01.1 - Cardiac murmur, unspecified Study Quality: Adequate ECG Rhythm: Sinus Conclusions: - Normal study Findings Left Ventricle Normal left ventricular size, thickness, and systolic function. The visually estimated ejection fraction is between 60-65%. Diastolic function is normal for age. Right Ventricle Normal right ventricular cavity size and systolic function. Atria Both atria are normal in size. There is no evidence of interatrial shunt. Aortic Valve Normal aortic valve structure and function. There is no aortic valve stenosis. There is no aortic valve regurgitation. Mitral Valve Normal mitral valve structure and function. There is trace mitral valve regurgitation. There is no mitral valve stenosis. Pulmonic Valve The pulmonic valve is likely normal. There is trace pulmonic valve regurgitation. Tricuspid Valve Normal tricuspid valve structure. There is trace tricuspid valve regurgitation. The right ventricular systolic pressure is normal. The right ventricular systolic pressure is 16 mmHg. Normal right atrial pressure. There is no evidence of pulmonary hypertension. Great Vessels All visible segments of the aorta are normal in size. The visualized portions of the pulmonary artery and branches are normal. Venous The inferior vena cava is normal in size and collapses greater than 50% with inspiration. Pericardium/Pleural There is no evidence of pericardial effusion. Prior Study Comparison no previous study in the last 5 years for comparison Measurements 2D Linear Measurements IVSd: 0.56 0.6-0.9/0.6-1.0 cm LVIDd: 4.56 3.9-5.3/4.2-5.9 cm LVIDd Index: 2.92 2.4-3.2/2.2-3.1 cm/m2 LVIDs: 3.06 2.0-3.6 cm LVPWd: 0.51 0.7-1.1 cm LA Diam: 2.80 2.7-3.8/3.0-4.0 cm LAIDs Index: 1.79 1.5-2.3 cm/m2 LV Mass: 86.39 67-162/88-224 g LV Mass Index: 55.38 43-95/49-115 g/m2 LVOT Diam: 1.80 3.0+(-)1.3 cm Mitral Valve MV Pk E: 0.75 MV PK A: 0.50 MV Decel Time: 169.00 E/A: 1.50 E'Lateral: 12.20 E'Medial: 6.64 E/E' Med: 11.20 E/E' Lat: 6.10 PHT: 50.00 MVA PHT: 4.40 Decel [place]: 4.41 Aortic Valve AoV Pk Erich: 1.04 AoV Pk Grad: 4.00 CLARIBEL: 2.47 LVOT LVOT Pk Erich: 1.01 LVOT Mn Erich: 0.68 LVOT VTI: 0.19 LVOT Pk Grad: 4.00 LVOT Mn Grad: 2.00 LVOT Diam: 1.80 LVOT Area: 2.54 Diastolic Function MV Pk E: 0.75 MV Pk A: 0.50 E/A: 1.50 E'Medial: 6.64 E/E' Med: 11.20 E' Laterial: 12.20 E/E' Lat: 6.10 Right Ventricle TAPSE (mm): 14.60 TVS' Erich: 9.36 Tricuspid Valve TR Pk Erich: 1.78 TR Pk Grad: 13.00 RA Press: 3.00 RVSP: 16.00 Great Vessels Aorta Sinus of Valsalva: 2.50 2.0-3.5 cm Ao Asc: 2.40 2.1-3.4 cm Pulmonary Valve PV Pk Erich: 0.73 Peak PV Grad: 2.00 Updated in Other Vendor System with Status of Final Carroll Arellano MD electronically signed on 07/29/2024 3:38:38 PM with status of Final
== END ==
LOC: HO.CARD 10:56
PROVIDERS: PCP Internal Medicine; Visit Provider Internal Medicine
DX: R01.1 Cardiac murmur, unspecified (principal)
CPT/HCPCS: 93306

== ENCOUNTER → 2024-07-29 10:59 | Outpatient (BNV) | payer OTHER, SELFPAY | PROVIDERS: PCP Internal Medicine; Visit Provider Internal Medicine Cardiovascular Disease | DX: R01.1 Cardiac murmur, unspecified (principal) | CPT/HCPCS: 93306 ==

== ENCOUNTER 2024-08-16 13:08 | Outpatient (REF) | payer OTHER, SELFPAY ==
[2024-08-17 04:05] LABS: CT PCR NOT DETECTED (Not Detect.); NG PCR NOT DETECTED (Not Detect.)
[2024-08-17 08:57] LABS: Bacterial Vaginosis PCR NEGATIVE (Negative); Candida Group PCR NOT DETECTED (Not Detect); Candida glab krusei PCR NOT DETECTED (Not Detect); Trichomonas vaginalis PCR NOT DETECTED (Not Detect)
[2024-08-17 11:02] LABS: HPV 16,18/45 See PAP report
== END 2024-08-16 13:09 | disposition home or self-care (01) ==
LOC: HO.LAB 13:08
PROVIDERS: PCP Internal Medicine; Visit Provider Advanced Practice Midwife
DX: Z01.419 Encounter for gynecological examination (general) (routine) without abnormal findings (principal); N89.8 Other specified noninflammatory disorders of vagina; Z20.2 Contact with and (suspected) exposure to infections with a predominantly sexual mode of transmission
CPT/HCPCS: 0352U; 87491; 87591; 87624; 88175

== ENCOUNTER 2024-08-16 13:08 | Outpatient (AMB) | payer OTHER, SELFPAY ==
[2024-08-16 13:12] VITALS: BP 116/68; BMI 24.2
--- NOTE | 2024-08-16 13:12 | MHC.OFFVIS ---
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 Building Architect Services: Building Architect Present Information Interpreted: clinical only Allergies No Known Allergies [NKA] Allergy (Verified 08/16/24 13:13) Medication List - Last Reconciled 08/16/24 by Nadira Israel CNM ibuprofen 600 mg PO Q6H PRN lidocaine 4% (Aspercreme (lidocaine)) 1 patch topical DAILY PRN Is last menstrual period known: Yes Last menstrual period: 07/28/24 Do you need a note to return to daycare/school/sports/work: No HPI HPI 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 She has 2 children delivered vaginally the 1st with a long labor the 2nd 1 with a very fast labor. She is currently sexually active. She gets fairly regular periods. She is concerned about a sana followed by pain and inflammation that she had on her breasts and in her chest wall about a month ago she went to the emergency room got evaluated and was assured that she had nothing cardiac going on and that there was not anything else going on either she has seen her primary care provider and discuss this. She is worried because her sister had breast cancer when she was 21 in her sister has now had a recurrence and apparently it has spread elsewhere and she is very unwell her mother helps take care of her she does not know if she has had the BRCA testing were not. She remembers being referred to somebody for testing once but does not remember anything about it. She would not be happy if she got but she is anxious and does not have a good memory of using artificial control in the past. Towards the end of the visit she did share that she does use condoms. [facility] Medical History UTI (urinary tract infection) FH: breast cancer in first degree relative Migraine with aura No pertinent past medical history Surgical History History of appendectomy Family History Mother CVD (cardiovascular disease) Osteoporosis Father Lung cancer Sister Breast cancer, Onset Age: 21 Mental health disorder Social History (Updated 06/29/24 @ 16:57 by Payal Smith MD) Housing: House Alcohol intake: current Alcohol intake frequency: holidays/special occasions only Alcohol type: wine Patient Tobacco Use Status: Never used Tobacco e-Cigarette/Vaping Use: Never Used Second Hand Smoke Exposure: No service: No Current occupational status: employed 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 [employer] Current occupational exposures/hazards: No Gender identity: Female Cognitive needs: No Hearing needs: No Vision needs: No Female Reproductive History Menstrual Age of Menarche: 11 Duration of menses: 3-5 days Date of last menstrual period: 07/28/24 control method: none Total pregnancies: 2 Full term: 2 History of abnormal pap smear: No (last pap unknown) Physical Exam Vital Signs: Last Vital Signs BP 116/68 08/16/24 13:12 BMI result Body Mass Index 24.2 Const General: healthy appearing, comfortable, no acute distress, well developed and alert Nutritional Appearance: average body habitus Orientation/consciousness: patient oriented x3 Limitations: no limitations HEENT Head: Yes normocephalic Neck Neck: Yes normal visual inspection Chest Chest palpation & inspection: normal inspection of the chest Breast/axilla inspection: normal inspection of the breasts and normal inspection of the axillae Breast/axilla palpation: normal palpation of the breasts and normal palpation of the axillae Resp Effort & Inspection: normal respiratory effort GI Inspection: Yes normal to inspection, No Abdominal wall edema and No distended Palpation (GI): Soft to palpation and nontender Other: External exam within normal limits there to darkened paula left groin from past episodes of folliculitis from shaving. They are not currently inflamed Patient was extremely anxious about the exam and says she always is and tightened up frequently Vagina is pink and moist how very healthy appearing there is a fair appearing whitish mucus consistent with 2nd half of cycle cervix multiparous long thick closed mobile nontender uterus midposition mobile nontender adnexa nontender good muscle tone. General: Yes bladder normal to palpation External Female Exam: normal external appearance and normal appearance of the urethra Speculum Exam - Vagina: normal appearance of the vagina, normal palpation and normal vaginal discharge Speculum Exam - Cervix: normal appearance of the cervix, normal palpation and nontender Bimanual exam- vagina & uterus: normal bimanual exam, normal palpation, uterine size normal, bladder normal to palpation, consistency normal, normal palpation, uterine mobility normal, uterine shape normal, No Cervical tenderness present, non-tender and no cervical motion tenderness Bimanual Exam- Adnexa, other: normal adnexae, no masses, normal and No adnexal tenderness Neuro General: patient oriented x3 Assessment & Plan Assessment & Plan (1) Encounter for annual routine gynecological examination: Code(s): Z01.419 - Encounter for gynecological examination (general) (routine) without abnormal findings Category: Medical (2) FH: breast cancer in first degree relative: Code(s): Z80.3 - Family history of malignant neoplasm of breast Category: Medical (3) Screening for breast cancer: Code(s): Z12.39 - Encounter for other screening for malignant neoplasm of breast Category: Medical (4) Breast pain: Code(s): N64.4 - Mastodynia Category: Medical (5) Family history of breast cancer in first degree relative: Code(s): Z80.3 - Family history of malignant neoplasm of breast Category: Medical (6) Cervical cancer screening: Comment: pap done 08/16/24. Code(s): Z12.4 - Encounter for screening for malignant neoplasm of cervix Category: Medical (7) Encounter for screening examination for sexually transmitted disease: Code(s): Z11.3 - Encounter for screening for infections with a predominantly sexual mode of transmission Category: Medical (8) control counseling: Comment: rev all options- using condoms, Code(s): Z30.09 - Encounter for other general counseling and advice on contraception Category: Medical Plan Today for electronic equipment repairmen visit but she pills this provider that we have met each other many years before she even had her children at the midwifery practice. She has 2 children delivered vaginally the 1st with a long labor the 2nd 1 with a very fast labor. She is currently sexually active. She gets fairly regular periods. She is concerned about a sana followed by pain and inflammation that she had on her breasts and in her chest wall about a month ago she went to the emergency room got evaluated and was assured that she had nothing cardiac going on and that there was not anything else going on either she has seen her primary care provider and discuss this. She is worried because her sister had breast cancer when she was 21 in her sister has now had a recurrence and apparently it has spread elsewhere and she is very unwell her mother helps take care of her she does not know if she has had the BRCA testing were not. She remembers being referred to somebody for testing once but does not remember anything about it. She would not be happy if she got but she is anxious and does not have a good memory of using artificial control in the past. Towards the end of the visit she did share that she does use condoms. I reassured her the condoms are very reliable method of control and I also did teaching with her about recognize in where she is in her cycle so that she can add this self knowledge to boost her efforts at not getting and she does not wish to be. In addition I reminded her those Plan B she had a condom break at an inopportune time. She is not interested in any other methods as this time. For her breast pain concerns and breast cancer concerns and putting in a referral to breast surgeon to discuss what kind of screening she should have. In the meantime I am asking her to proactive discuss with her mother and sister whether not her sister had BRCA testing done as this will help inform how she moves forward with her own screening. I reassured her about her normal anatomy she also had had concerns about recurring folliculitis in her groin area after shaving and I assured her that this is unfortunately extremely common and is essentially what happens when bacteria enters the hair follicle with shaving in the only solution is to not shave but there is no way to make the paula disappear. Orders: Referrals Breast Surgery Referral N64.4 - Mastodynia, Z01.419 - Encounter for gynecological examination (general) (routine) without abnormal findings, Z11.3 - Encounter for screening for infections with a predominantly sexual mode of transmission, Z12.39 - Encounter for other screening for malignant neoplasm of breast, Z12.4 - Encounter for screening for malignant neoplasm of cervix, Z30.09 - Encounter for other general counseling and advice on contraception, Z80.3 - Family history of malignant neoplasm of breast Coding Level of Care Code New Pt Prev Care 18-39yr([id number] Diagnoses Encounter for annual routine gynecological examination Z01.419 FH: breast cancer in first degree relative Z80.3 Screening for breast cancer Z12.39 Breast pain N64.4 Family history of breast cancer in first degree relative Z80.3 Cervical cancer screening Z12.4 Encounter for screening examination for sexually transmitted disease Z11.3 control counseling Z30.09
== END 2024-08-16 14:02 | disposition home or self-care (01) ==
LOC: HO.HWSM 13:08
PROVIDERS: PCP Internal Medicine; Visit Provider Advanced Practice Midwife
DX: Z01.419 Encounter for gynecological examination (general) (routine) without abnormal findings (principal); Z80.3 Family history of malignant neoplasm of breast; Z12.39 Encounter for other screening for malignant neoplasm of breast; N64.4 Mastodynia; Z12.4 Encounter for screening for malignant neoplasm of cervix; Z11.3 Encounter for screening for infections with a predominantly sexual mode of transmission; Z30.09 Encounter for other general counseling and advice on contraception
CPT/HCPCS: 99385

== ENCOUNTER 2024-10-26 15:54 | Outpatient (AMB) | payer OTHER, SELFPAY ==
--- NOTE | 2024-10-26 16:01 | MHC.PC.OV ---
Vital Signs 10/26/24 16:03 Height 5 ft 1 in Weight 130 lb BMI 24.6 BP 110/78 Blood Pressure Location Lt brachial Position Sitting Intake Visit Reasons: PE Intake Note: Patient here for a physical exam Law Researcher Required: No Accompanied by: Self / Same As Patient Allergies No Known Allergies [NKA] Allergy (Verified 10/26/24 16:21) Medication List - Last Reconciled 10/26/24 by Payal Smith MD No Known Home Meds Tobacco use date assessed: 10/26/24 Dental Screening Dental Screen Date: 10/26/24 Did you have a dental visit in the last 12 months?: Yes Did you have a dental problem in the last 6 months where you did not have access to dental care?: No Was dental information given to patient?: Patient has dentist HPI HPI Comments History of Present Illness Details The patient is a 34-year-old female presenting with for her physical exam complaining of left breast pain. She reports experiencing a throbbing pain in her breast, persistent over the last three weeks. This pain started around three to four weeks ago and has become constant, although it initially came and went. The patient recalls that a Pap smear conducted in July last year showed no lumps, and the breast was checked without finding any palpable masses or nipple discharge. She noticed a red bump on her breast that looked like a bruise last June, which resolved in about a week, but the pain persists. The patient also reports chest pain continuing from an episode that started back in June, which led her to visit urgent care. An X-ray was performed then, but it showed no significant findings. She expresses concern due to her sister having had breast cancer at a young age and also cancer recurrence, which she believes could be ovarian or uterine. Additionally, the patient experiences persistent fatigue and easy bruising, describing bruises particularly on her thighs and soreness in her legs on touch. Past blood work indicated normal white blood cells, normal hemoglobin, slightly low anion gap, and a low BUN within normal limits. Her cholesterol was borderline at 198, with triglyceride at 94. Her LDL was noted as high for her type, based on calculations using cholesterol and triglycerides, while her HDL was normal. Vitamin D levels were mildly low at 29.4, slightly below the normal of 30. Previous thyroid tests and rheumatoid arthritis markers were negative, as were tests for mahesh, chlamydia, and gonorrhea. - Discussed checking the tetanus immunization status due to uncertainty of last administration. - Blood work done in June showed normal white blood cells, hemoglobin, cholesterol, and liver enzymes. - Vitamin D level was mildly low at 29.4, and advice to maintain supplementation was noted. - Family history noted includes lung cancer in the biological father and heart disease alongside osteoporosis in the mother. [facility] Medical History UTI (urinary tract infection) FH: breast cancer in first degree relative Migraine with aura No pertinent past medical history Surgical History History of appendectomy Family History (Updated 10/26/24 @ 16:26 by Payal Smith MD) Mother CVD (cardiovascular disease) Osteoporosis Father Lung cancer Sister Breast cancer, Onset Age: 21 Mental health disorder Social History Housing: House Alcohol intake: current Alcohol intake frequency: holidays/special occasions only Alcohol type: wine Patient Tobacco Use Status: Never used Tobacco e-Cigarette/Vaping Use: Never Used Second Hand Smoke Exposure: No service: No Current occupational status: employed 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 Current occupational exposures/hazards: No Gender identity: Female Cognitive needs: No Hearing needs: No Vision needs: No Female Reproductive History Menstrual Age of Menarche: 11 Questionnaire PHQ-9 Over the last 2 weeks, how often have you been bothered by any of the following problems? 1. Little interest or pleasure in doing things: not at all 2. Feeling down, depressed, or hopeless: not at all 3. Trouble falling or staying asleep, or sleeping too much: nearly every day 4. Feeling tired or having little energy: several days 5. Poor appetite or overeating: not at all 6. Feeling bad about yourself - or that you are a failure or have let yourself or your family down: not at all 7. Trouble concentrating on things, such as reading the newspaper or watching television: not at all 8. Moving or speaking so slowly that other people could have noticed. Or the opposite - being so fidgety or restless that you have been moving around a lot more than usual: not at all 9. Thoughts that you would be better off or of hurting yourself in some way: not at all Total score: 4 Depression Screening Interpretation: Positive Depression Screening Follow-up: Existing condition, Follow-up Visit Requested and Declines treatment Depression Screening Done: Yes 02694 - PHQ-9 Billing: Yes Source: Developed by Drs. Shawn Romero, Elba Laboy, Mahamed Magallon and colleagues, with an educational ramez from [employer]. Thrive Questionnaire Date Thrive assessed: 10/26/24 I am a: Patient What is your living situation today?: I have a steady place to live Within the past 12 months, did the food you bought not last and you didn't have the money to get more?: Never true Within the past 12 months, did you worry whether your food would run out before you got money to buy more?: Never true Do you have trouble paying for medicines?: No Do you have trouble getting transportation to medical appointments?: No Do you have trouble paying your heating and electricity bill?: No Do you have trouble taking care of your child, family member or friend?: No Do you have trouble with day-to-day activities such as bathing, preparing meals, shopping, managing finances, etc.?: No Are you currently unemployed and looking for a job?: No Are you interested in more education?: Yes Please select the resources that you would like help with: Job search/training and Education Currently or been in a relationship where the following occur: No concerns reported THRIVE Score: 0 AUDIT C Alcohol Use Questionnaire (AUDIT-C) 1. How often do you have a drink containing alcohol?: Never Total Score: 0 Score Reviewed/Action Taken: No JO-7 AMB Questionnaire JO-7 Date JO - 7 assessed: 10/26/24 Feeling nervous, anxious, or on edge: 1 = Several days Not being able to stop or control worryin = Several days Worrying too much about different things: 1 = Several days Trouble relaxin = Several days Being so restless that it is hard to sit still: 1 = Several days Becoming easily annoyed or irritable: 0 = Not at all Feeling afraid as if something awful might happen: 0 = Not at all Total JO-7 score (0-4 normal; 5-9 mild; 10-14 moderate; 15-21 severe): 5 Source: Developed by Drs. Shawn Romero, Elba Laboy, Mahamed Magallon and colleagues, with an educational ramez from [employer]. JO-7 Assessment Billing JO-7 Assessment Tool: JO-7 Assessment 25854 Review of Systems Const All systems reviewed & are unremarkable except as noted in HPI and below Card Denies chest pain at rest, Denies chest pain with activity, Denies edema, Denies irregular heart rhythm, Denies claudication, Denies dyspnea, Denies dyspnea on exertion, Denies orthopnea, Denies paroxysmal nocturnal dyspnea and Denies slow heart rate Resp Denies cough, Denies dyspnea and Denies dyspnea on exertion GI Denies abdominal pain, Denies change in bowel habits, Denies excessive flatus, Denies nausea and Denies vomiting Denies urinary incontinence, Denies urinary hesitancy and Denies urinary urgency Physical exam (Primary Care) Vital Signs: Last Vital Signs BP 110/78 10/26/24 16:03 BMI result Body Mass Index 24.6 Tobacco/Smoking Status: Tobacco use Status Tobacco use date assessed 10/26/24 10/26/24 16:06 Patient Tobacco Use Status Never used Tobacco 10/26/24 16:06 e-Cigarette/Vaping Use Never Used 10/26/24 16:06 PHQ-9: PHQ-9 Score PHQ-9: Total score 4 10/26/24 17:02 Depression Screening Interpretation: Positive Depression Screening Follow-up: Existing condition, Follow-up Visit Requested and Declines treatment Thrive Assessment: Date of Thrive Assessment Date Thrive assessed 10/26/24 10/26/24 16:06 Currently or been in a relationship where the following occur: No concerns reported [facility] Head: Yes normal to inspection, Yes normocephalic and Yes atraumatic Ears: external ears normal Eyes General: appearance normal, both eyes and all related structures Eyelids: Yes eyelids normal Conjunctivae: conjunctivae normal Neck Neck: Yes normal visual inspection and Yes supple Resp Effort & Inspection: normal respiratory effort Auscultation: clear to auscultation bilaterally Cardio Jugular venous distension: no JVD Rate: regular rate Rhythm: regular rhythm Heart sounds: S1 normal heart sound present and S2 normal heart sound present GI Inspection: Yes normal to inspection Palpation (GI): Soft to palpation and nontender Auscultation: normal bowel sounds Skin General skin exam: no rashes or lesions noted Neuro General: no focal motor deficits Extrem General: Yes full ROM Psych Appearance: grossly normal Office Procedures Flu Questionnaire Does the patient have a severe egg allergy?: No Immunizations Fluarix Triv [id number] (PF) 45 mcg (15 mcg x 3)/0.5 mL IM syringe Performing Provider: Payal Smith MD Performing Location: [facility] Documented (not given) by: BONI Millard on 10/26/24 16:09 Reason Not Given: Patient Refused Coding Level of Care Code Est Pt Level 3 (58340) Est Pt Prev Care 18-39y(69275) Diagnoses Annual physical exam Z00.00 Easy bruising R23.3 Additional Codes JO-7 Assessment Billing - JO-7 Assessment Tool: JO-7 Assessment 82221 ([id number]) PHQ-9 - 68713 - PHQ-9 Billing: Yes ([id number]) Time Spent (min) 35 Assessment & Plan Assessment & Plan (1) Annual physical exam: Code(s): Z00.00 - Encounter for general adult medical examination without abnormal findings Category: Medical (2) Easy bruising: Code(s): R23.3 - Spontaneous ecchymoses Category: Medical Plan - Order a diagnostic mammogram and breast ultrasound to assess persistent breast pain. - Referral to a breast surgeon for further evaluation due to family history of breast cancer. - Referral to hematology for evaluation of easy bruising and consistent fatigue despite normal platelet counts. - Referral to potentially include a genetic consultation to explore cancer risk, given extensive family history. - Encourage lifestyle adjustments to improve mildly low Vitamin D levels, ensuring adequate supplementation. Patient was informed and verbally consented to the use of an ambient scribe for clinic note documentation during this visit. We discussed the concerns regarding breast pain, stressing the importance of conducting a diagnostic mammogram and ultrasound to clarify the cause. We also reviewed the significance of her family history of breast and possible ovarian/uterine cancer. The possibility of a genetic consultation to assess cancer predispositions was suggested due to the young age of the sister?s diagnosis. Regarding tiredness, fatigue, and bruising, a referral to hematology could assist in further ruling out potential underlying conditions not evident in prior lab work. Management for the slight vitamin D deficiency was discussed, with potential supplementation considered. The psychological impact and mild depressive symptoms were acknowledged, although the patient does not feel it requires counseling at this time. Orders: Orders Influenza [id number] Immunization Today Z23 - Encounter for immunization Referrals Hematology & Oncology Referral R23.3 - Spontaneous ecchymoses Genetics Referral Z80.3 - Family history of malignant neoplasm of breast Patient Instructions: - Follow up with scheduled mammogram and breast ultrasound. - Attend the appointment with the breast surgeon for further evaluation. - Consider genetic consultation for cancer predisposition assessment. - Maintain vitamin D supplementation as previously recommended. - Monitor symptoms of fatigue and bruising; seek care if they exacerbate.
[2024-10-26 16:03] VITALS: BP 110/78; BMI 24.6
--- OUTSIDE RECORDS SUMMARY | 2024-10-26 16:35 | XMS_ITS | Encounter Summary ---
Author Organization [facility] Address [address] [place] [address] Phone Care Team Providers Care Dispatcher Service Or Work Name Role Phone Sherley Redding MD Primary Care Provider [phone] Encounter Details Date Type Department Care Team (Late st Contact Info) Description 05/07/2017 Conversion Encounter [facility] [place] [address] [place] [address] Social History Tobacco Use Types Packs/Day Years Used Date Smoking Tobacco: Never Assessed Comments Unknown Sex and Gender Information Value Date Recorded Sex Assigned at Not on file Legal Sex Female 4:30 PM EDT Gender Identity Not on file Sexual Orientation Not on file documented as of this encounter Plan of Treatment Not on file documented as of this encounter Visit Diagnoses Not on filedocumented in this encounter Care Teams Dispatcher Service Or Work Relationship Specialty Start Date End Date Sherley Redding MD [address] [place] [address] PCP - General 05/01/17 01/01/23 documented as of this encounter
--- OUTSIDE RECORDS SUMMARY | 2024-10-26 16:35 | XMS_ITS | Clinical Summary ---
Author Organization [facility] Address [address] [place] [phone] Phone Care Team Providers Care Flour Distributor Name Role Phone Unavailable Primary Care Provider Unavailabl e Immunizations Name Administration Dates Next Due DTP 02/03/1994, 0,03/05/1989,01/08,1988 Hep B, ped/adol 12/24/2009, 0,02/01/2001,09/08,08/05/2000 Hib (PRP-T) 04/05/1990 Influenza, injectable, trivalent 11/11/2006 MMR 08/05/2000,12/07/1989 Meningococcal Conj (Menactra) MCV4P 10/12/2009 OPV 02/03/1994, 0,01/08/1989,11/06 Td (adult) (MBL), 2 Lf tetan us toxoid, PF, adsorbed 06/14/2001 Tdap 10/12/2009 Family History Relation Name Status Comments Mother Alive Mother: Allergi c to anti Inflam.cholesterol Sister Alive Sister: Alive a nd well, Neurofibromatosis Social History Tobacco Use Types Packs/Day Years Used Date Smoking Tobacco: Never Assessed Comments Unknown Sex and Gender Information Value Date Recorded Sex Assigned at Not on file Legal Sex Female 4:30 PM EDT Gender Identity Not on file Sexual Orientation Not on file Plan of Treatment Health Maintenance Due Date Last Done Comments Varicella Vaccines (1 of 2 - 13+ 2-dose series) 2001 Consider Men B Vaccine (1 of 2 - Bexsero 2-dose series) 2004 DTaP,Tdap,and Td Vaccines (7 - Td or Tdap) 10/12/2019 10/12/2009, 06/14/2001, 02/03/1994, Additional history exists Influenza Vaccines (#1) 2024 11/11/2006 COVID-19 Vaccine ( season) 2024 HIB Vaccines Completed 04/05/1990 IPV Vaccines Completed 02/03/1994, 03/21, 01/08/1989, Additional history exists MMR Vaccines Completed 08/05/2000, 12/07/1989 Meningococcal Vaccine Aged Out 10/12/2009 No boogie liz eligible based on patient's age to complete this topic Hepatitis B Vaccines Completed 12/24/2009, 10/26/2009, 02/01/2001, Additional history exists HPV Vaccines Aged Out No longer eligi ble based on patient's age to complete this topic Hepatitis A Vaccines Aged Out No long er eligible based on patient's age to complete this topic Men B Vaccine Aged Out No longer elig ible based on patient's age to complete this topic Pneumococcal Vaccine Aged Out No long er eligible based on patient's age to complete this topic
== END 2024-10-26 16:38 | disposition home or self-care (01) ==
PROVIDERS: PCP Internal Medicine; Visit Provider Internal Medicine
DX: Z00.00 Encounter for general adult medical examination without abnormal findings (principal); R23.3 Spontaneous ecchymoses

== ENCOUNTER → 2024-10-26 15:54 | Outpatient (BNVA) | payer OTHER, SELFPAY | PROVIDERS: PCP Internal Medicine; Visit Provider Internal Medicine | DX: Z00.00 Encounter for general adult medical examination without abnormal findings (principal); R23.3 Spontaneous ecchymoses; Z80.3 Family history of malignant neoplasm of breast | CPT/HCPCS: 96127 ==

== ENCOUNTER 2024-11-02 12:16 | Outpatient (REF) | payer OTHER, SELFPAY ==
--- NOTE | ~2024-11-02 | MM_ITS ---
EXAMINATION: MM DIAGNOSTIC DIGITAL BREAST TOMOSYNTHESIS, BILATERAL Bilateral Limited ultrasound. CLINICAL INFORMATION: Bilateral breast pain. Strong family history of breast cancer including sister in her 20s and again in her 30s with breast cancer. COMPARISON: Mammography: Comparison is made with relevant prior exams. TECHNIQUE: Digital breast mammography with tomosynthesis is performed in both the craniocaudal and mediolateral oblique views along with computer-aided detection (CAD). Bilateral Limited ultrasound. FINDINGS: The breasts are heterogeneously dense, which may obscure small masses (ACR BI-RADS breast composition Category c). There are no significant masses, abnormal calcifications, or other abnormalities. Targeted color Doppler ultrasound scanning in the area the patient's lateral breast pain bilaterally in the right breast from 6-12 o'clock in the left breast from 12-6 o'clock lateral indication 8-10 o'clock medial breast demonstrates normal fibroglandular breast tissue. There is no sonographic abnormality. Results are discussed with the patient at time of visit. MM/MM tomosynthesis diagnostic BI IMPRESSION: Left: No mammographic or sonographic abnormality to account for the patient's breast pain. Recommend clinical evaluation and follow-up. Right: No mammographic or sonographic abnormality to account for the patient's breast pain. Recommend clinical evaluation and follow-up. Given patient's dense breast tissue and strong family history of breast cancer a breast MRI with contrast screening surveillance could be considered for further evaluation. Breast MRI needs to be ordered by the patient's providing clinician. ASSESSMENT: BI-RADS BI-RADS 1 - Negative RECOMMENDATION: 1 year F/U This patient's information was entered into a reminder system with a target due date for their next mammogram. Electronically signed by: Ana Beckford DO 11/02/2024 01:31 PM RHONDA
--- OUTSIDE RECORDS SUMMARY | 2024-11-02 13:49 | XMS_ITS | Encounter Summary ---
Author Organization [facility] Address [address] [place] [address] Phone Care Team Providers Care Food Manager Name Role Phone Sherley Redding MD Primary Care Provider [phone] Encounter Details Date Type Department Care Team (Late st Contact Info) Description 05/07/2017 Conversion Encounter [facility] [place] [address] [place] [address] Social History Tobacco Use Types Packs/Day Years [...] on filedocumented in this encounter Care Teams Food Manager Relationship Specialty Start Date End Date Sherley Redding MD [address] [place] [address] PCP - General 05/01/17 01/01/23 documented as of this encounter
--- OUTSIDE RECORDS SUMMARY | 2024-11-02 13:49 | XMS_ITS | Clinical Summary ---
Author Organization [facility] Address [address] [place] [phone] Phone Care Team Providers Care Materials Associate Name Role Phone Unavailable Primary Care Provider Unavailabl e Immunizations Immunization Administration Dates Next Due DTP 02/03/1994, 0,03/05/1989,01/08,1988 [...] of 2 - 13+ 2-dose series) 2001 DTaP,Tdap,and Td Vaccines (7 - Td or Tdap) 10/12/2019 10/12/2009, 06/14/2001, 02/03/1994, Additional history exists Influenza Vaccines (#1) 2024 11/11/2006 COVID-19 Vaccine ( - 2023-25 season) 2024 HIB Vaccines Completed 04/05/1990 IPV [...]
== END 2024-11-02 12:17 | disposition home or self-care (01) ==
LOC: HO.MAMMO 12:16
PROVIDERS: PCP Internal Medicine; Visit Provider Advanced Practice Midwife
DX: N64.4 Mastodynia (principal); Z80.3 Family history of malignant neoplasm of breast
CPT/HCPCS: 76642; 77062; 77066

== ENCOUNTER → 2024-11-02 12:30 | Outpatient (BNV) | payer OTHER, SELFPAY | PROVIDERS: PCP Internal Medicine; Visit Provider Internal Medicine | DX: N64.4 Mastodynia (principal); R92.333 Mammographic heterogeneous density, bilateral breasts | CPT/HCPCS: 76642; 77062; 77066 ==

== ENCOUNTER 2024-11-18 09:44 | Outpatient (AMB) | payer OTHER, SELFPAY ==
--- NOTE | 2024-11-18 09:45 | A.OFFVIS_ITS ---
Vital Signs 3 11/18/24 09:52 Height 5 ft 1 in Weight 128 lb BMI 24.2 BP 118/58 L Blood Pressure Location Rt brachial Position Sitting Pulse 82 Intake Visit Reasons: Mastodynia Intake Note: Patient is seen in office for evaluation of mastodynia. Pt c/o: constant pain for the past 4months. Denies lumps, rash, nipple discharge. PCP referring for US. Reports sister hx with breast CA @ 21yrs of age. mm/us:11/02/24 Wallpaper Inspector Required: No Accompanied by: Self / Same As Patient Allergies No Known Allergies [NKA] Allergy (Verified 11/18/24 09:51) Medication List - Last Reconciled 11/18/24 by Demario Godwin MD No Known Home Meds HPI Comments Details: 34-year-old female patient presenting for evaluation of left breast pain. The pain is located mainly in the upper outer quadrant and is intermittent in nature. This began several months ago with a red spot this location. She was subsequently evaluated at a walk-in center and no significant findings identified. Patient's family history is significant for a sister who developed breast cancer at the age of 21 and now has a recurrence of the age of 40. She also has a history of either uterine or ovarian cancer (patient is not sure of which). She recently underwent a mammogram and ultrasound evaluation on 11/02/2024. This revealed a breast density score of C, but no mammographic or sonographic evidence of malignancy (BI-RADS 1). MRI is recommended due to her family history and breast density score. She denies any palpable mass or new skin changes this time. [facility] Medical History UTI (urinary tract infection) FH: breast cancer in first degree relative Migraine with aura No pertinent past medical history Surgical History History of appendectomy Family History Mother CVD (cardiovascular disease) Osteoporosis Father Lung cancer Sister Breast cancer, Onset Age: 21 Mental health disorder Social History Housing: House Alcohol intake: current Alcohol intake frequency: holidays/special occasions only Alcohol type: wine Patient Tobacco Use Status: Never used Tobacco e-Cigarette/Vaping Use: Never Used Second Hand Smoke Exposure: No service: No Current occupational status: employed 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[employer] [place] Current occupational exposures/hazards: No Gender identity: Female Cognitive needs: No Hearing needs: No Vision needs: No Female Reproductive History Menstrual Age of Menarche: 11 Review of Systems Const All systems reviewed & are unremarkable except as noted in HPI and below Physical Exam Vital Signs: Last Vital Signs Pulse 82 11/18/24 09:52 BP 118/58 L 11/18/24 09:52 BMI result Body Mass Index 24.2 Const General: cooperative and no acute distress Nutritional Appearance: well nourished Orientation/consciousness: patient oriented x3 Limitations: no limitations HEENT Head: Yes normocephalic and Yes atraumatic Ears: hearing grossly normal bilaterally Chest Other: Left breast: No skin change, no nipple retraction, no nipple discharge, no palpable mass, no enlarged lymph nodes. Slight area of increased fibrocystic change noted in the upper outer quadrant with associated tenderness. No discrete masses appreciated in this location. Right breast: No skin change, no nipple retraction, no nipple discharge, no palpable mass, no enlarged lymph nodes Chest/axillae images: 2 1. Area of fibrocystic change upper outer quadrant left Resp Effort & Inspection: normal respiratory effort, no audible wheezes, no cough and no respiratory distress Cardio Jugular venous distension: no JVD GI Inspection: Yes normal to inspection Skin Other: Warm, dry, no rash Neuro General: patient oriented x3 Extrem General: Yes no clubbing, cyanosis or edema Assessment & Plan Assessment & Plan (1) FH: breast cancer in first degree relative: Code(s): Z80.3 - Family history of malignant neoplasm of breast Category: Medical (2) Family history of breast cancer in first degree relative: Code(s): Z80.3 - Family history of malignant neoplasm of breast Category: Medical (3) Breast pain: Code(s): N64.4 - Mastodynia Category: Medical Plan 34-year-old female patient presenting with a strong family history of breast cancer and complaints of left breast pain over several months. The patient's family history is significant for her sister developing breast cancer the age of 21 with a subsequent recurrence at the age of 40. Examination reveals an area of fibrocystic change in the left upper outer quadrant with associated tenderness which feels benign. No other suspicious findings are identified. I would agree that MRI would be helpful especially given her high risk for breast cancer due to family history and findings of dense breast tissue. This would be a diagnostic test to examined the area of the left breast with fibrocystic change. We also discussed genetic testing given her strong family history of breast cancer. She wishes to proceed with this and will schedule a time to return for the testing. I will call her with the results of the MRI. Coding Level of Care Code New Pt Level 4 (86921) Diagnoses FH: breast cancer in first degree relative Z80.3 Family history of breast cancer in first degree relative Z80.3 Breast pain N64.4
[2024-11-18 09:52] VITALS: BP 118/58; PULSE 82; BMI 24.2
--- OUTSIDE RECORDS SUMMARY | 2024-11-18 10:33 | XMS_ITS | Encounter Summary ---
Author Organization [facility] Address [address] [place] [address] Phone Care Team Providers Care Weatherization Administrator Name Role Phone Sherley Redding MD Primary Care Provider [phone] Encounter Details Date Type Department Care Team (Late st Contact Info) Description 05/07/2017 Conversion Encounter [facility] [place] [address] [place] [address] Social History Tobacco Use Types Packs/Day Years [...] on filedocumented in this encounter Care Teams Weatherization Administrator Relationship Specialty Start Date End Date Sherley Redding MD [address] [place] [address] PCP - General 05/01/17 01/01/23 documented as of this encounter
--- OUTSIDE RECORDS SUMMARY | 2024-11-18 10:33 | XMS_ITS | Clinical Summary ---
Author Organization [facility] Address [address] [place] [address] Phone Care Team Providers Care Twister Doffer Name Role Phone Unavailable Primary Care Provider [...]
== END 2024-11-18 10:06 | disposition home or self-care (01) ==
PROVIDERS: PCP Internal Medicine; Referring Provider Advanced Practice Midwife; Visit Provider Surgery
DX: Z80.3 Family history of malignant neoplasm of breast (principal); N64.4 Mastodynia
CPT/HCPCS: 99204

== ENCOUNTER → 2024-11-18 09:44 | Outpatient (BNVA) | payer OTHER, SELFPAY | PROVIDERS: PCP Internal Medicine; Referring Provider Advanced Practice Midwife; Visit Provider Surgery ==

== ENCOUNTER → 2024-11-30 11:07 | Outpatient (BNV) | payer OTHER, SELFPAY | PROVIDERS: PCP Internal Medicine; Visit Provider Internal Medicine | DX: N64.89 Other specified disorders of breast (principal) | CPT/HCPCS: 77049 ==

== ENCOUNTER 2024-11-30 11:08 | Outpatient (REF) | payer OTHER, SELFPAY ==
--- NOTE | ~2024-11-30 | MR_ITS ---
EXAMINATION: MR BREAST WITHOUT AND WITH CONTRAST, BILATERAL CLINICAL INFORMATION: High risk screening surveillance. Strong family history of breast cancer including sister and 20s and and 30s. COMPARISON: Comparison is made with available prior examinations on PACS. TECHNIQUE: MR imaging of the breast was performed using T1, T2 and fat saturated techniques. Dynamic multiphase imaging was also performed after administration of intravenous gadolinium contrast agent. Computer generated 3-D reconstruction was performed. FINDINGS: There is heterogeneous fibroglandular breast tissue with marked background enhancement with bilateral scattered enhancing foci. LEFT BREAST: Scattered foci in the lateral left breast are slightly asymmetric compared to the right, these probably represent background scattered enhancing foci however given this is the patient's first breast MRI and dense breast tissue follow-up is recommended. No other suspicious enhancing masses or areas of nonmass enhancement. No internal mammary or axillary adenopathy. RIGHT BREAST: No suspicious enhancing masses or areas nonmass enhancement. No internal mammary or axillary adenopathy. Limited views of the chest and abdomen are unremarkable. MR/MR breast BI wo/w con IMPRESSION: Right: Negative. Left: Scattered enhancing foci in the lateral left breast are asymmetric but likely due to background enhancing foci. Given that this is the patient's first breast MRI and she has dense breast tissue recommend 6 month follow-up MRI for further evaluation of stability. ASSESSMENT: LEFT BREAST: BI-RADS 3 probably benign. RIGHT BREAST: BI-RADS 1-Negative RECOMMENDATIONS: Recommend 6 month follow-up breast MRI . Electronically signed by: Ana Beckford DO 12/01/2024 07:04 PM EDT
--- OUTSIDE RECORDS SUMMARY | 2024-11-30 13:09 | XMS_ITS | Encounter Summary ---
Author Organization [facility] Address [address] [place] [address] Phone Care Team Providers Care Setter Helper Name Role Phone Sherley Redding MD Primary Care Provider [phone]- [phone] Encounter Details Date Type Department Care Team (Late st Contact Info) Description 05/07/2017 Conversion Encounter [facility] [place] [address] [place] [address] Social History Tobacco Use Types Packs/Day Years [...] on filedocumented in this encounter Care Teams Setter Helper Relationship Specialty Start Date End Date Sherley Redding MD [address] [place] [address] PCP - General 05/01/17 01/01/23 documented as of this encounter
--- OUTSIDE RECORDS SUMMARY | 2024-11-30 13:09 | XMS_ITS | Clinical Summary ---
Author Organization [facility] Address [address] [place] [address] Phone Care Team Providers Care Access Developer Name Role Phone Unavailable Primary Care Provider [...]
[2024-11-30] MEDS: gadobutroL 7.5 ML VIAL IVPUSH (13:53)
== END 2024-11-30 11:09 | disposition home or self-care (01) ==
LOC: HO.MRI 11:08
PROVIDERS: PCP Internal Medicine; Visit Provider Surgery
DX: N64.4 Mastodynia (principal); R92.30 Dense breasts, unspecified; Z80.3 Family history of malignant neoplasm of breast
CPT/HCPCS: 77049; A9585

== ENCOUNTER 2024-12-02 13:58 | Outpatient (REF) | payer OTHER, SELFPAY ==
[2024-12-02 14:17] LABS: Fibrinogen 399 MG/DL (259-690); Prothrombin Time 11.5 SEC (10.9-12.4)
[2024-12-02 14:20] LABS: Partial Thromboplastin Time 33.8 SEC (26.0-36.8)
--- OUTSIDE RECORDS SUMMARY | 2024-12-02 15:43 | XMS_ITS | Clinical Summary ---
Author Organization [facility] Address [address] [place] [address] Phone Care Team Providers Care Continuity Coordinator Name Role Phone Unavailable Primary Care Provider [...]
--- OUTSIDE RECORDS SUMMARY | 2024-12-02 15:43 | XMS_ITS | Encounter Summary ---
Author Organization [facility] Address [address] [place] [address] Phone Care Team Providers Care Wine Cellar Stock Clerk Name Role Phone Sherley Redding MD Primary Care Provider [phone] Encounter Details Date Type Department Care Team (Late st Contact Info) Description 05/07/2017 Conversion Encounter [facility] [place] [address] [place] [address] Social History Tobacco Use Types Packs/Day Years [...] on filedocumented in this encounter Care Teams Wine Cellar Stock Clerk Relationship Specialty Start Date End Date Sherley Redding MD [address] [place] [address] PCP - General 05/01/17 01/01/23 documented as of this encounter
[2024-12-02 15:47] LABS: Folate 10.5 ng/mL (> or = 4.0); Vitamin B12 231 pg/mL (200-900)
[2024-12-03 04:15] LABS: HBS Num1 227.39 mIU/mL (0-7.99); HBc Num1 0.05 S/CO (0.00-0.79); HBsAGNum1 0.33 S/CO (0.00-0.99); HIV AB/AG Nonreactive (Nonreactive); HIV Num 1 0.06 S/CO (0.00-0.99); Hepatitis B Core Antibody Nonreactive (Nonreactive); Hepatitis B Surface Antigen Negative (Negative); ~HepC Num1 0.11 S/CO (0.00-0.79); ~Hepatitis B Surface Antibody REACTIVE (Nonreactive); ~Hepatitis C Antibody Nonreactive (Nonreactive)
[2024-12-06 11:19] LABS: Anti Nuclear Antibody Screen NEGATIVE (NEGATIVE)
[2024-12-07 03:39] LABS: EBV-NA IgG Index >600.00 U/mL; EBV-VCA IgG Ab >750.00 U/mL; EBV-VCA IgM Ab <36.00 U/mL
[2024-12-08 17:54] LABS: Factor VIII Activity Clotting 66 % normal (50-180); PTT, Activated 33 sec (23-32); Ristocetin Cofactor 45 % normal (42-200)
== END 2024-12-02 13:59 | disposition home or self-care (01) ==
LOC: HO.LAB 13:58
PROVIDERS: PCP Internal Medicine; Visit Provider Nurse Practitioner Family
DX: R23.3 Spontaneous ecchymoses (principal); R53.83 Other fatigue
CPT/HCPCS: 36415; 82306; 82607; 82746; 85240; 85245; 85246; 85247; 85384; 85610; 85730; 86038; 86664; 86665; 86704; 86706; 86803; 87340; 87389

== ENCOUNTER 2024-12-08 08:18 | Outpatient (AMB) | payer OTHER, SELFPAY ==
[2024-12-08 08:25] VITALS: BMI 23.7
--- NOTE | 2024-12-08 08:25 | MHC.OFFVIS ---
Vital Signs 12/08/24 08:25 Height 5 ft 1 in Weight 125 lb 10.616 oz BMI 23.7 Intake Visit Reasons: s/p MRI 11/30 Intake Note: This patient presents for breast MRI results. Pt c/o; reports no complaints. Assembly Line Leader Required: No Accompanied by: Self / Same As Patient Allergies adhesive tape Adverse Reaction (Intermediate, Verified 12/08/24 08:28) Rash HPI Comments Details: 34-year-old female patient presenting for evaluation of left breast pain. The pain is located mainly in the upper outer quadrant and is intermittent in nature. This began several months ago with a red spot this location. She was subsequently evaluated at a walk-in center and no significant findings identified. Patient's family history is significant for a sister who developed breast cancer at the age of 21 and now has a recurrence of the age of 40. She also has a history of either uterine or ovarian cancer (patient is not sure of which). She recently underwent a mammogram and ultrasound evaluation on 11/02/2024. This revealed a breast density score of C, but no mammographic or sonographic evidence of malignancy (BI-RADS 1). MRI is recommended due to her family history and breast density score. She denies any palpable mass or new skin changes this time. She underwent evaluation with a breast MRI on 11/30/2024. This revealed left scattered enhancing foci in the lateral left breast which were asymmetric likely due to background enhancing foci. Given that this was the patient's 1st breast MRI a six-month follow-up breast MRI was recommended. She feels improved today but does have occasional episodes of increased pain especially in the left breast at the outer breast. [facility] Medical History UTI (urinary tract infection) FH: breast cancer in first degree relative Migraine with aura No pertinent past medical history Surgical History History of appendectomy Family History Mother CVD (cardiovascular disease) Osteoporosis Father Lung cancer Sister Breast cancer, Onset Age: 21 Mental health disorder Social History Housing: House Alcohol intake: current Alcohol intake frequency: holidays/special occasions only Alcohol type: wine Patient Tobacco Use Status: Never used Tobacco e-Cigarette/Vaping Use: Never Used Second Hand Smoke Exposure: No service: No Current occupational status: employed 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[employer] [place] Current occupational exposures/hazards: No Gender identity: Female Cognitive needs: No Hearing needs: No Vision needs: No Female Reproductive History Menstrual Age of Menarche: 11 Review of Systems Const All systems reviewed & are unremarkable except as noted in HPI and below Physical Exam Vital Signs: BMI result Body Mass Index 23.7 Exam deferred Assessment & Plan Assessment & Plan (1) FH: breast cancer in first degree relative: Code(s): Z80.3 - Family history of malignant neoplasm of breast Category: Medical (2) Family history of breast cancer in first degree relative: Code(s): Z80.3 - Family history of malignant neoplasm of breast Category: Medical (3) Breast pain: Code(s): N64.4 - Mastodynia Category: Medical (4) Abnormal MRI, breast: Code(s): R92.8 - Other abnormal and inconclusive findings on diagnostic imaging of breast Category: Medical Plan 34-year-old female patient presenting with a strong family history of breast cancer and complaints of left breast pain over several months. The patient's family history is significant for her sister developing breast cancer the age of 21 with a subsequent recurrence at the age of 40. Examination reveals an area of fibrocystic change in the left upper outer quadrant with associated tenderness which feels benign. No other suspicious findings are identified. Breast MRI revealed scattered enhancing foci in the lateral left breast which were asymmetric. A six-month follow-up breast MRI is recommended. I reviewed the images with the patient and discuss repeating the breast MRI in 6 months. She expressed understanding and agrees with the plan. We also discussed options for breast pain including low-dose tamoxifen for short period of time. We will hold off on this for now. She should follow up in 6 months for breast examination and review of breast MRI. Orders: Orders MR breast BI wo/w con 06/05/25 R92.8 - Other abnormal and inconclusive findings on diagnostic imaging of breast Coding Level of Care Code Est Pt Level 3 (34646) Diagnoses FH: breast cancer in first degree relative Z80.3 Family history of breast cancer in first degree relative Z80.3 Breast pain N64.4 Abnormal MRI, breast R92.8
--- OUTSIDE RECORDS SUMMARY | 2024-12-08 08:28 | XMS_ITS | Encounter Summary ---
Author Organization [facility] Address [address] [place] [address] Phone Care Team Providers Care Licensing Services Clerk Name Role Phone Sherley Redding MD Primary Care Provider [phone] Encounter Details Date Type Department Care Team (Late st Contact Info) Description 05/07/2017 Conversion Encounter [facility] [place] [address] [place] [address] Social History Tobacco Use Types Packs/Day Years [...] on filedocumented in this encounter Care Teams Licensing Services Clerk Relationship Specialty Start Date End Date Sherley Redding MD [address] [place] [address] PCP - General 05/01/17 01/01/23 documented as of this encounter
--- OUTSIDE RECORDS SUMMARY | 2024-12-08 08:28 | XMS_ITS | Clinical Summary ---
Author Organization [facility] Address [address] [place] [address] Phone Care Team Providers Care Phlebotomy Coordinator Name Role Phone Unavailable Primary Care [...]
== END 2024-12-08 08:41 | disposition home or self-care (01) ==
LOC: HO.HGS 08:19
PROVIDERS: PCP Internal Medicine; Visit Provider Surgery
DX: Z80.3 Family history of malignant neoplasm of breast (principal); N64.4 Mastodynia; R92.8 Other abnormal and inconclusive findings on diagnostic imaging of breast
CPT/HCPCS: 99213

== ENCOUNTER 2024-12-28 09:55 | Outpatient (REF) | payer OTHER, SELFPAY ==
--- NOTE | ~2024-12-28 | US_ITS ---
CLINICAL HISTORY: abd bloating, generalized pain, elevated bili US abdomen complete Comparison: None Findings: The visualized pancreas is normal. The aorta and inferior vena cava are normal caliber. The liver is normal in size and echotexture. There is no intrahepatic bile duct dilatation. The common duct is 3 mm in diameter. The gallbladder is normal. There is no sonographic Gordon sign. The main portal vein is antegrade. The right kidney is 9.1 cm in length. The left kidney is 9.4 cm in length. The spleen is normal. No ascites. IMPRESSION: 1. Normal complete abdominal ultrasound. This document has been electronically signed by: Tayo Dangelo MD on 12/28/2024 13:17:35
--- NOTE | ~2024-12-28 | US_ITS ---
CLINICAL HISTORY: menorrhagia, abdominal bloating, weight gain US pelvis transabdominal and transvaginal with Doppler Comparison: None Findings: Transabdominal scanning performed for overall anatomy. Transvaginal scanning performed for additional detail. The uterus is 7.3 cm length. Normal myometrium. Endometrium 3 mm thickness. Right ovary 2.5 x 1.1 x 2.0 cm. Left ovary 3.1 x 1.5 x 1.7 cm. Multiple normal follicles. Normal color Doppler with arterial/venous spectral tracing of both ovaries. No free fluid. IMPRESSION: 1. Normal pelvic ultrasound with Doppler. No evidence of ovarian torsion. This document has been electronically signed by: Tayo Dangelo MD on 12/28/2024 13:18:26
--- OUTSIDE RECORDS SUMMARY | 2024-12-28 10:58 | XMS_ITS | Encounter Summary ---
Author Organization [facility] Address [address] [place] [address] Phone Care Team Providers Care Splicer Machine Operator Name Role Phone Sherley Redding MD Primary Care Provider [phone] Encounter Details Date Type Department Care Team (Late st Contact Info) Description 05/07/2017 Conversion Encounter [facility] [place] [address] [place] [address] Social History Tobacco Use Types Packs/Day Years [...] on filedocumented in this encounter Care Teams Splicer Machine Operator Relationship Specialty Start Date End Date Sherley Redding MD [address] [place] [address] PCP - General 05/01/17 01/01/23 documented as of this encounter
--- OUTSIDE RECORDS SUMMARY | 2024-12-28 10:58 | XMS_ITS | Clinical Summary ---
Author Organization [facility] Address [address] [place], [place] [phone] Phone Care Team Providers Care Oil Field Operator Name Role Phone Unavailable Primary Care Provider [...]
== END 2024-12-28 09:56 | disposition home or self-care (01) ==
LOC: HO.US 09:55
PROVIDERS: PCP Internal Medicine; Visit Provider Nurse Practitioner Family
DX: N92.0 Excessive and frequent menstruation with regular cycle (principal); R63.5 Abnormal weight gain; R14.0 Abdominal distension (gaseous); R10.9 Unspecified abdominal pain; R79.89 Other specified abnormal findings of blood chemistry
CPT/HCPCS: 76700; 76856

== ENCOUNTER → 2024-12-28 09:58 | Outpatient (BNV) | payer OTHER, SELFPAY | PROVIDERS: PCP Internal Medicine; Visit Provider Radiology Vascular & Interventional Radiology | DX: R10.84 Generalized abdominal pain (principal) | CPT/HCPCS: 76700; 76830; 76856 ==

== ENCOUNTER 2025-03-15 13:01 | Outpatient (AMB) | payer OTHER, SELFPAY ==
[2025-03-15 13:03] VITALS: BP 104/76; PULSE 88; TEMP 36.8; O2SAT 96; BMI 24.1
--- NOTE | 2025-03-15 13:03 | AM.OFFWIN_ITS ---
Intake Vital Signs 03/15/25 13:03 Height 5 ft 1 in Weight 127 lb 8 oz BMI 24.1 BP 104/76 Blood Pressure Location Lt brachial Position Sitting Pulse 88 Pulse Source Pulse Oximeter Temp 98.3 F Temp Source Oral Pulse Oximetry (%) 96 Oxygen Delivery Method Room Air Intake Visit Reasons: EP Cyst Intake Note: Patient present with cyst left inner thigh times 4 months Patient Tobacco Use Status: Never used Tobacco Is last menstrual period known: Yes Post menopausal: No Patient : No Allergies adhesive tape Adverse Reaction (Intermediate, Verified 03/15/25 13:08) Rash HPI HPI Comments History of Present Illness Details History - The patient is a 34-year-old female pr esenting with evaluation of a bump in the left groin area. - The swelling has been present for a ye ar in duration and fluctuates in size, becoming larger with heat and activity, and reducing with warm water application. - The patient reports no discharge, blee ding, or pus from the swelling, and it does not come to a head. - The swelling is associated with prurit us, particularly when the patient is hot or sweating. - Previous consultations with primary ca re and gynecology did not result in treatment, and the patient was advised to seek urgent care. - The patient has applied tea tree oil a nd Benadryl cream for symptomatic relief. - She denies fever, chills, redness, war mth, discharge, drainage, bleeding. - She has no other lesions. Physical Exam General: Cooperative, healthy appearing, comfortable, no acute distress and well developed Orientation: Patient oriented x3 Limitations: No limitations Respiratory: Normal respiratory effort and able to speak in complete sentences. Clear to auscultation bilaterally. No w/r/r noted. Cardiovascular: RRR, no m/r/g noted. Normal S1 and S2 Skin: Small, soft, oval, dark, non-tender, non-indurated single lesion noted on the left upper inner thigh with no streaking noted. No streaking noted. Patient was informed and verbally consented to the use of an ambient scribe for clinic note documentation during this visit [facility] Medical History UTI (urinary tract infection) FH: breast cancer in first degree relative Migraine with aura No pertinent past medical history Surgical History History of appendectomy Family History Mother CVD (cardiovascular disease) Osteoporosis Father Lung cancer Sister Breast cancer, Onset Age: 21 Mental health disorder Social History Housing: House Alcohol intake: current Alcohol intake frequency: holidays/special occasions only Alcohol type: wine Patient Tobacco Use Status: Never used Tobacco e-Cigarette/Vaping Use: Never Used Second Hand Smoke Exposure: No service: No Current occupational status: employed 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[employer] [place] Current occupational exposures/hazards: No Gender identity: Female Cognitive needs: No Hearing needs: No Vision needs: No Female Reproductive History Menstrual Age of Menarche: 11 Review of Systems Const All systems reviewed & are unremarkable except as noted in HPI and below Physical Exam Vital Signs: Last Vital Signs Temp 98.3 F 03/15/25 13:03 Pulse 88 03/15/25 13:03 BP 104/76 03/15/25 13:03 Pulse Ox 96 03/15/25 13:03 Oxygen Delivery Method Room Air 03/15/25 13:03 BMI result Body Mass Index 24.1 Assessment & Plan Assessment & Plan (1) Skin lesion of left leg: Code(s): L98.9 - Disorder of the skin and subcutaneous tissue, unspecified Plan Most likely cyst vs mole vs lesion vs keratosis Plan - Referral to dermatology for further evaluation and potential removal of the cyst. - Consideration of surgical intervention if the cyst is confirmed and persistent. - Application of a combination antifungal and anti-inflammatory cream to manage pruritus and potential fungal involvement. Orders: Referrals Dermatology Referral L98.9 - Disorder of the skin and subcutaneous tissue, unspecified Coding Level of Care Code Est Pt Level 3 (83406) Diagnoses Skin lesion of left leg L98.9
--- OUTSIDE RECORDS SUMMARY | 2025-03-15 15:11 | XMS_ITS | Clinical Summary ---
Author Organization [facility] Address [address] [place] [address] Phone Care Team Providers Care Bottom Turner Name Role Phone Unavailable Primary Care Provider [...] (#1) 2024 11/11/2006 COVID-19 Vaccine ( - 2024-25 season) 2024 HIB Vaccines Completed 04/05/1990 IPV [...]
== END 2025-03-15 13:47 | disposition home or self-care (01) ==
PROVIDERS: PCP Internal Medicine; Visit Provider Physician Assistant Medical
DX: L98.9 Disorder of the skin and subcutaneous tissue, unspecified (principal)

== ENCOUNTER → 2025-03-15 13:01 | Outpatient (BNVA) | payer OTHER, SELFPAY | PROVIDERS: PCP Internal Medicine; Visit Provider Physician Assistant Medical | DX: Z13.89 Encounter for screening for other disorder (principal) ==

== ENCOUNTER → 2025-08-09 15:04 | Outpatient (BNV) | payer OTHER, SELFPAY | PROVIDERS: PCP Internal Medicine; Visit Provider Internal Medicine | DX: N64.4 Mastodynia (principal); R92.8 Other abnormal and inconclusive findings on diagnostic imaging of breast | CPT/HCPCS: 77049 ==

== ENCOUNTER 2025-08-09 15:13 | Outpatient (REF) | payer OTHER, SELFPAY ==
--- NOTE | ~2025-08-09 | MR_ITS ---
EXAMINATION: MR BREAST WITHOUT AND WITH CONTRAST, BILATERAL CLINICAL INFORMATION: Risk strong family history of breast cancer including sister age 21. 6 month follow-up recommended for enhancement in the lateral left breast on prior MRI. Patient describes bilateral breast pain for which she had a negative workup in October 2024. COMPARISON: Comparison is made with relevant prior imaging. TECHNIQUE: MR imaging of the breast was performed using T1, T2 and fat saturated techniques. Dynamic multiphase imaging was also performed after the administration of intravenous gadolinium contrast agent. Computer generated 3D reconstruction and enhancement kinetic analysis was ulitized by the radiologist in the interpretation of this examination. FINDINGS: Breast composition: Heterogeneous fibroglandular breast tissue Background parenchymal enhancement: Moderate LEFT BREAST: Previously seen oval enhancing foci in the lateral left breast are less conspicuous and not significantly changed from prior MRI. No suspicious enhancing masses or areas of non mass enhancement. No axillary or internal mammary adenopathy. RIGHT BREAST: No suspicious enhancing masses or areas of non mass enhancement. No axillary or internal mammary adenopathy. Limited views of the chest and abdomen are unremarkable. MR/MR breast BI wo/w con IMPRESSION: No MR specific evidence of malignancy bilateral breasts. ASSESSMENT: LEFT BREAST: BI-RADS 2-Benign RIGHT BREAST: BI-RADS 1-Negative RECOMMENDATIONS: Yearly screening mammography Yearly Breast MRI screening surveillance. Electronically signed by: Ana Beckford DO 08/14/2025 11:59 AM EST
--- OUTSIDE RECORDS SUMMARY | 2025-08-10 03:49 | XMS_ITS | Encounter Summary ---
Author Organization [facility] Address [address] [place] [address] Phone Care Team Providers Care Solid Waste Disposal Manager Name Role Phone Sherley Redding MD Primary Care Provider [phone] Encounter Details Date Type Department Care Team (Late st Contact Info) Description 05/07/2017 Conversion Encounter [facility] [place] [address] [place] [address] Social History Tobacco Use Types Packs/Day Years [...] on filedocumented in this encounter Care Teams Solid Waste Disposal Manager Relationship Specialty Start Date End Date Sherley Redding MD [address] [place] [address] PCP - General 05/01/17 01/01/23 documented as of this encounter
--- OUTSIDE RECORDS SUMMARY | 2025-08-10 03:49 | XMS_ITS | Clinical Summary ---
Author Organization [facility] Address [address] [place] [phone] Phone Care Team Providers Care Quality Control Operator Name Role Phone Unavailable Primary Care [...] of 2 - 13+ 2-dose series) 2001 HPV Vaccines (1 - 3-dose SCDM series) 2015 DTaP,Tdap,and Td Vaccines (7 - Td or Tdap) 10/12/2019 10/12/2009, 06/14/2001, 02/03/1994, Additional history exists Influenza Vaccines (#1) 2025 11/11/2006 COVID-19 Vaccine ( season) 2025 HIB Vaccines Completed 04/05/1990 IPV Vaccines Completed 02/03/1994, 03/21, 01/08/1989, Additional history exists MMR Vaccines Completed 08/05/2000, 12/07/1989 Meningococcal Vaccine Aged Out 10/12/2009 No boogie liz eligible based on patient's age to complete this topic Hepatitis B Vaccines Completed 12/24/2009, 10/26/2009, 02/01/2001, Additional history exists Hepatitis A Vaccines Aged Out No long er eligible based on patient's age to complete this topic Men B Vaccine Aged Out No longer elig ible based on patient's age to complete this topic Pneumococcal Vaccine Aged Out No long er eligible based on patient's age to complete this topic
== END 2025-08-09 15:14 | disposition home or self-care (01) ==
LOC: HO.MRI 15:13
PROVIDERS: PCP Internal Medicine; Visit Provider Surgery
DX: R92.8 Other abnormal and inconclusive findings on diagnostic imaging of breast (principal)
CPT/HCPCS: 77049; A9585

== ENCOUNTER 2025-08-23 13:16 | Outpatient (AMB) | payer OTHER, SELFPAY ==
--- NOTE | 2025-08-23 13:27 | A.OFFVIS_ITS ---
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 Bilingual Medical Receptionist: Bilingual Medical Receptionist Present ([place]) Accompanied by: Self / Same As Patient Allergies adhesive tape Adverse Reaction (Intermediate, Verified 08/23/25 13:30) Rash Medication List - Last Reconciled 08/23/25 by Nadira Israel CNM cholecalciferol (vitamin D3) 1,250 mcg PO QWEEK clotrimazole-betamethasone 1-0.05 % 1 appl topical BID 2 weeks cyanocobalamin (vitamin B-12) 1,000 mcg sublingual DAILY 30 days ergocalciferol (vitamin D2) 1 cap PO QWEEK Is last menstrual period known: Yes Last menstrual period: 08/04/25 Post menopausal: No Patient : No HPI HPI 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 She said she did go to see Dr. Godwin last year and did have the MRIs and she was told that everything was okay she had a follow-up 1 just a few weeks ago that was 6 months after the 1st she does not know if she has any follow-up and did not think she did. She does say her breasts are still sore at times she thinks that there random times not just before her. She does keep track of her periods in an dein but has not associated her breast symptoms in any way to anything at this point. She does have dry skin though she recently saw a [facility] specialist who told her that everything looked good she is awaiting a referral for somebody else the the [facility] specialist referred her to to see if a swelling in her groin can be removed she says that she was told that even if it is removed it may come back. She does not need anything for control her want anything she has been on pills in the past but she gets migraines with auras. She does get a lot of low backache cramping with her periods especially the 1st 2 days she tends to use BenGay or Motrin PFSH Medical History UTI (urinary tract infection) FH: breast cancer in first degree relative Migraine with aura No pertinent past medical history Surgical History History of appendectomy Family History Mother CVD (cardiovascular disease) Osteoporosis Father Lung cancer Sister Breast cancer, Onset Age: 21 Mental health disorder Social History Housing: House Alcohol intake: current Alcohol intake frequency: holidays/special occasions only Alcohol type: wine Patient Tobacco Use Status: Never used Tobacco e-Cigarette/Vaping Use: Never Used Second Hand Smoke Exposure: No service: No Current occupational status: employed 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[employer] [place] occupational exposures/hazards: No Gender identity: Female Cognitive needs: No Hearing needs: No Vision needs: No Female Reproductive History Menstrual Age of Menarche: 11 Duration of menses: 3-5 days Date of last menstrual period: 08/04/25 control method: none Total pregnancies: 2 Full term: 2 Physical Exam Vital Signs: Last Vital Signs BP 118/72 08/23/25 13:30 BMI result Body Mass Index 24.2 Const General: healthy appearing, comfortable, no acute distress, well developed and alert Nutritional Appearance: average body habitus Orientation/consciousness: patient oriented x3 Limitations: no limitations HEENT Head: Yes normocephalic Neck Neck: Yes normal visual inspection Chest Chest palpation & inspection: normal inspection of the chest Breast/axilla inspection: normal inspection of the breasts and normal inspection of the axillae Breast/axilla palpation: normal palpation of the breasts and normal palpation of the axillae Resp Effort & Inspection: normal respiratory effort GI Inspection: Yes normal to inspection, No Abdominal wall edema and No distended Palpation (GI): Soft to palpation and nontender Other: External exam within normal limits there is a slight swelling in her left groin consistent with possible history of follicular involvement but non erythematous nontender somewhat fluctuant. Vagina pink and moist patient very tense with exam and tensing muscles throughout normal white discharge noted cervix multiparous pink smooth healthy appearing somewhat deep in pelvis. Uterus small nonenlarged nontender very slightly retroverted but not extremely. Adnexa nontender. good muscle tone. General: Yes bladder normal to palpation External Female Exam: normal external appearance and normal appearance of the urethra Speculum Exam - Vagina: normal appearance of the vagina, normal palpation and normal vaginal discharge Speculum Exam - Cervix: normal appearance of the cervix, normal palpation and nontender Bimanual exam- vagina & uterus: normal bimanual exam, normal palpation, uterine size normal, bladder normal to palpation, consistency normal, normal palpation, uterine mobility normal, uterine shape normal, No Cervical tenderness present, non-tender and no cervical motion tenderness Bimanual Exam- Adnexa, other: normal adnexae, no masses, normal and No adnexal tenderness Neuro General: patient oriented x3 Results Reviewed Results Reviewed: Name: Alejandra Zaldivar Age/Sex: 33/F Attending: Nadira Israel CNM : 1990 Submitted by: Nadira Israel CNM Copies to: Payal Lucas MD MR #: [id number] Status: DEP REF Collected: 08/16/24 Location: .LAB Received: 08/17/24 Interpretation Satisfactory for evaluation. Negative for intraepithelial lesion or malignancy. Mild inflammation. HPV High Risk: Negative HPV Genotyping 16: Negative HPV Genotyping 18: Negative Clinical Information LMP: 07/28/2024 Previous PAP test: Unknown date, WNL Material Received ThinPrep-Cervical Copies To Nadira Israel CNM [employer] [facility] [place] [facility] [address] [place] [address], [address] [place] [address] Payal Lucas MD [facility] [place] [facility],[address] [place] [address] Electronically Signed By: SHANIQUA Sharma (ASCP) 08/24/24 1034 As of July 13, 2024, the technical services to include automated prescreening performed by the ThinPrep Imaging System, PAP screening and HPV testing will be performed at [facility] (CLIA #[id number]), [address] [place] [address]. Testing for HPV was performed using the [employer] [id number] system. The presence of HPV in the female genital tract is associated with a number of diseases, including cervical carcinoma. The HPV DNA high risk pool tests for HPV 31, 33, 35, 39, 45, 51, 52, 56, 58, 59, 66 and 68. The testing for HPV 16 and 18 genotypes has also been performed. A positive result indicates detection of nucleic acid sequences from one or more subtypes, whereas a negative result indicates such sequences were Patient: Alejandra Zaldivar Age/Sex: 33/F MR#: [id number] Page 1 of 2 [place] [address] Magnetic Resonance Report Signed Patient: Alejandra Zaldivar MR#: [id number] : 1990 Acct:[id number] Age/Sex: 34 / F ADM Date: 08/09/25 Loc: .MRI Attending Dr: Demario Godwin MD Ordering Physician: Demario Godwin MD Date of Service: 08/09/25 Procedure(s): MR breast BI wo/w con Accession Number(s): [id number] cc: Demario Godwin MD; Payal Lucas MD~ Reason for Exam: R92.8 - Other abnormal and inconclusive findings on diagnostic imaging o... EXAMINATION: MR BREAST WITHOUT AND WITH CONTRAST, BILATERAL CLINICAL INFORMATION: Risk strong family history of breast cancer including sister age 21. 6 month follow-up recommended for enhancement in the lateral left breast on prior MRI. Patient describes bilateral breast pain for which she had a negative workup in October 2024. COMPARISON: Comparison is made with relevant prior imaging. TECHNIQUE: MR imaging of the breast was performed using T1, T2 and fat saturated techniques. Dynamic multiphase imaging was also performed after the administration of intravenous gadolinium contrast agent. Computer generated 3D reconstruction and enhancement kinetic analysis was ulitized by the radiologist in the interpretation of this examination. FINDINGS: Breast composition: Heterogeneous fibroglandular breast tissue Background parenchymal enhancement: Moderate LEFT BREAST: Previously seen oval enhancing foci in the lateral left breast are less conspicuous and not significantly changed from prior MRI. No suspicious enhancing masses or areas of non mass enhancement. No axillary or internal mammary adenopathy. RIGHT BREAST: No suspicious enhancing masses or areas of non mass enhancement. No axillary or internal mammary adenopathy. Limited views of the chest and abdomen are unremarkable. MR/MR breast BI wo/w con IMPRESSION: No MR specific evidence of malignancy bilateral breasts. ASSESSMENT: LEFT BREAST: BI-RADS 2-Benign RIGHT BREAST: BI-RADS 1-Negative RECOMMENDATIONS: Yearly screening mammography Yearly Breast MRI screening surveillance. 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 Code(s): Z80.3 - Family history of malignant neoplasm of breast Category: Medical (2) Screening for breast cancer: Code(s): Z12.39 - Encounter for other screening for malignant neoplasm of breast Category: Medical (3) Encounter for annual routine gynecological examination: Code(s): Z01.419 - Encounter for gynecological examination (general) (routine) without abnormal findings Category: Medical (4) Encounter for screening examination for sexually transmitted disease: Code(s): Z11.3 - Encounter for screening for infections with a predominantly sexual mode of transmission Category: Medical (5) Hx of dysmenorrhea: Code(s): Z87.42 - Personal history of other diseases of the female genital tract Category: Medical Plan Discussed the possible causes of her breast pain and sensitivity I suggested she follow her breast symptoms a long in her calendar to see if there is potentially any correlation with her cycle both with the timing of ovulation or premenstrually. Also briefly offered the possibility that her mastalgia might have something to do with fears or concerns about breasts given her sister's diagnosis with breast cancer etc. in her early age but she did not think that was it. On that is score I do recommend she continue follow-up as recommended for the family history of breast cancer and she is going to double check the letter she got to see if she is supposed to have any follow-up with the breast surgeon, I told her that normally if the surgeon had ordered testing normally there would be a plan for follow-up of the testing and further discussion. (review of note after visit confirms this,) She said as far she knew her sister was BRCA negative. 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 recommend caution with any of the stick on pads. -----Discussed in this visit the following: healthy balanced diet, regular and consistent exercise, getting recommended health screens, doing the best she can for her particular health concerns, kegel exercises, pap smear screening and followup recommendations, mammography screening and SBE, normal changes in cycl es in her life stage--- . Orders: Orders CT NG by PCR Vag/Cerv Today Z11.3 - Encounter for screening for infections with a predominantly sexual mode of transmission Bacterial Vaginosis Panel Today Z11.3 - Encounter for screening for infections with a predominantly sexual mode of transmission Coding Level of Care Code Est Pt Prev Care [id number]) Diagnoses FH: breast cancer in first degree relative Z80.3 Screening for breast cancer Z12.39 Encounter for annual routine gynecological examination Z01.419 Encounter for screening examination for sexually transmitted disease Z11.3 Hx of dysmenorrhea Z87.42
[2025-08-23 13:30] VITALS: BP 118/72; BMI 24.2
--- OUTSIDE RECORDS SUMMARY | 2025-08-23 15:45 | XMS_ITS | Clinical Summary ---
Author Organization [facility] Address [address] [place] [phone] Phone Care Team Providers Care Tonal Regulator Name Role Phone Unavailable Primary Care Provider [...]
--- OUTSIDE RECORDS SUMMARY | 2025-08-23 15:45 | XMS_ITS | Encounter Summary ---
Author Organization [facility] Address [address] [place] [address] Phone Care Team Providers Care Stockroom Selector Name Role Phone Sherley Redding MD Primary Care Provider [phone] Encounter Details Date Type Department Care Team (Late st Contact Info) Description 05/07/2017 Conversion Encounter [facility] [place] [address] [place] [address] Social History Tobacco Use Types Packs/Day Years [...] on filedocumented in this encounter Care Teams Stockroom Selector Relationship Specialty Start Date End Date Sherley Redding MD [address] [place] [address] PCP - General 05/01/17 01/01/23 documented as of this encounter
== END 2025-08-23 14:13 | disposition home or self-care (01) ==
LOC: HO.HWSM 13:16
PROVIDERS: PCP Internal Medicine; Visit Provider Advanced Practice Midwife
DX: Z01.419 Encounter for gynecological examination (general) (routine) without abnormal findings (principal); Z80.3 Family history of malignant neoplasm of breast; Z12.39 Encounter for other screening for malignant neoplasm of breast; Z11.3 Encounter for screening for infections with a predominantly sexual mode of transmission; Z87.42 Personal history of other diseases of the female genital tract
CPT/HCPCS: 99395

== ENCOUNTER 2025-08-23 13:16 | Outpatient (REF) | payer OTHER, SELFPAY ==
[2025-08-23 22:49] LABS: Bacterial Vaginosis PCR NEGATIVE (Negative); Candida Group PCR DETECTED (Not Detect); Candida glab krusei PCR NOT DETECTED (Not Detect); Trichomonas vaginalis PCR NOT DETECTED (Not Detect)
[2025-08-23 23:44] LABS: CT PCR NOT DETECTED (Not Detect.); NG PCR NOT DETECTED (Not Detect.)
== END 2025-08-23 13:17 | disposition home or self-care (01) ==
LOC: HO.LNP 13:16
PROVIDERS: PCP Internal Medicine; Visit Provider Advanced Practice Midwife
DX: Z01.419 Encounter for gynecological examination (general) (routine) without abnormal findings (principal); Z12.39 Encounter for other screening for malignant neoplasm of breast; Z20.2 Contact with and (suspected) exposure to infections with a predominantly sexual mode of transmission; Z87.42 Personal history of other diseases of the female genital tract; Z80.3 Family history of malignant neoplasm of breast
CPT/HCPCS: 81515; 87491; 87591